=== PATIENT | female | born 1945 | race Caucasian/White ===

== ENCOUNTER → 2018-02-04 07:48 | Outpatient (CLI) | payer MEDICARE, OTHER, SELFPAY ==
--- NOTE | 2018-02-04 07:50 | CT_ITS ---
STUDY: CT RIGHT SHOULDER REASON FOR EXAM: Female, 72 years old. Osteoarthritis. RADIATION DOSAGE (If Supplied By Facility): CTDIvol = ( 26.22 ) mGy, DLP = ( 508.65 ) mGycm TECHNIQUE: The patient was scanned in a multi detector CT scanner. High resolution transaxial imaging was performed without the administration of intravenous contrast material. Sagittal and coronal images were reconstructed. # of Images: 449 Individualized dose optimization techniques were used for this CT. COMPARISON: None. FINDINGS: The exam is very significantly limited, because of suboptimal positioning and field of view. Much of the proximal humerus is excluded from the field of view, including the greater tuberosity. No definite fractures or dislocations. Mild acromioclavicular osteoarthritis seen. Mild glenohumeral osteoarthritis is suggested. There is only 4 mm of distance between the surface of the humeral head and the anterior surface of the acromion. This suggests possibility of complete rotator cuff tear. Visualized right ribs are unremarkable. Visualized right lung is unremarkable. CT/Extremity Upper without Contra IMPRESSION: Limited by a suboptimal choice of [id number]. No definite acute abnormality. Moderate degenerative changes and cannot exclude complete rotator cuff tear. Electronically Signed: Mayco Orr MD at 16:01 EDT , Service support ,
== END ==
PROVIDERS: Family Provider Internal Medicine; PCP Internal Medicine; Referring Provider Specialist; Visit Provider Specialist
DX: M19.211 Secondary osteoarthritis, right shoulder (principal)
CPT/HCPCS: 73200

== ENCOUNTER → 2018-03-02 08:03 | Outpatient (CLI) | payer SELFPAY ==
--- NOTE | 2018-03-02 08:00 | CT_ITS ---
STUDY: CT RIGHT SHOULDER REASON FOR EXAM: Female, 72 years old. Right shoulder osteoarthritis. RADIATION DOSAGE (If Supplied By Facility): CTDIvol = ( 26.22 ) mGy, DLP = ( 508.65 ) mGycm TECHNIQUE: The patient was scanned in a multi detector CT scanner. High resolution transaxial imaging was performed without the administration of intravenous contrast material. Sagittal and coronal images were reconstructed. Individualized dose optimization techniques were used for this CT. COMPARISON: Comparison is made with prior study dated February 04, 2018. FINDINGS: Normal glenohumeral articulation. Normal glenoid rim, neck and visualized scapula. Normal humeral head, neck and tuberosities. There is a 4 mm distance between the surface of the humeral head and the anterior surface of the acromion. This is suggestive of chronic rotator cuff disease. Normal coracoid process. Normal visualized lateral clavicle. There is mild osteoarthritis with articular joint space narrowing. There is a Type II morphology (curved), with a neutral orientation. Normal visualized muscles and soft tissue structures. CT/Limited or Localized F/U CT IMPRESSION: Upward migration of the humeral head with narrowing of the space between the humeral head and the acromion. This is suggestive of rotator cuff disease. Electronically Signed: Diaz Apple MD at 9:55 EST Tel [phone], Service support ,
== END ==
PROVIDERS: Family Provider Internal Medicine; PCP Internal Medicine; Referring Provider Specialist; Visit Provider Specialist
DX: M19.011 Primary osteoarthritis, right shoulder (principal)
CPT/HCPCS: 76380

== ENCOUNTER 2018-04-06 06:35 | Inpatient (IN) | payer MEDICARE, OTHER, SELFPAY ==
[2014-11-28 10:17] VITALS: BMI 26.5
[2018-03-22 10:17] VITALS: BP 126/62; PULSE 75; RESP 16; TEMP 36.6; O2SAT 98; BMI 26.3
--- NOTE | 2018-03-22 10:23 | SDCEKG_ITS ---
Test Reason : Blood Pressure : / mmHG Vent. Rate : 075 BPM Atrial Rate : 075 BPM P-R Int : 142 ms QRS Dur : 086 ms QT Int : 400 ms P-R-T Axes : 047 030 042 degrees QTc Int : 446 ms Normal sinus rhythm Normal ECG Confirmed by ROSIE GILL, EDGAR ([id number]), editor publications MIC DIEGO ([id number]) on 03/23/2018 3:25:07 PM Referred By: Cliff Gonzalez Confirmed By:EDGAR VELEZ MD
[2018-03-22 10:50] LABS: Absolute Lymphocyte Count 1.83 X10^3/ul (0.83-4.51); Basophil# 0.01 X10^3/uL; Basophil% 0.2 % (0-1); Eosinophil# 0.16 X10^3/uL; Hematocrit 42.1 % (37-47); Hemoglobin 13.8 g/dl (12.0-15.0); Lymphocyte # 1.83 X10^3/ul (4.0); Lymphocyte % 34.8 % (19-41); Mean Corp Hgb Conc 32.8 g/gl (32-36); Mean Corpuscular Hgb 28.3 pg (27.0-32.0); Mean Corpuscular Volume 86.3 fL (81-99); Mean Platelet Vol. 10.8 fl (6.2-12.0); Monocyte# 0.31 X10^3/uL; Monocyte% 5.9 % (0-10); Neutrophil # 2.95 X10^3/uL (2.7-7.7); Neutrophil % 56.1 % (47-70); Platelet Count 270 K/mm3 (150-450); RBC Distribution Width SD 43.9 fl (35.1-43.9); Red Blood Count 4.88 M/mm3 (4.2-5.4); White Blood Count 5.3 K/mm3 (4.4-11.0)
[2018-03-22 10:51] LABS: POSITIVE COUNT NO; POSITIVE DIFFERENTIAL NO; POSITIVE MORPHOLOGY NO
[2018-03-22 11:12] LABS: Anion Gap 8 (5-15); BUN 23 mg/dL (7-18); BUN/Creat Ratio 25.3 RATIO (10-20); Calcium,Total 8.7 mg/dL (8.5-10.1); Chloride 105 mmol/L (98-107); Creatinine, Serum 0.91 mg/dL (0.55-1.02); EST Glomerular Filtration Rate 65 mL/min (>60); Est Glom Filt Rate - Afr Amer 78 mL/min (>60); Estimated Creatinine Clearance 51.02 ml/min; Glucose 91 mg/dL (74-106); Potassium 3.7 mmol/L (3.5-5.1); Sodium Level 144 mmol/L (136-145); Thyroid Stim Hormone (TSH) 1.31 uIU/mL (0.358-3.74)
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
[2018-04-06] VITALS (10 sets, daily range): BP systolic 108–135; BP diastolic 60–91; PULSE 59–91; RESP 14–18; TEMP 36.2–37.1; O2SAT 94–100; BMI 26.3; BMI 25.7
[2018-04-06] MEDS: Acetaminophen 500 MG Tablet 1000 MG PO ×3 (06:57→22:38)
[2018-04-06] MEDS: Celecoxib 200 MG Capsule 400 MG PO (06:57)
[2018-04-06] MEDS: Scopolamine 1mg/72hr Patch 1 PATCH TD (07:00)
--- NOTE | 2018-04-06 08:29 | OP.PCM_ITS ---
Report of Operation Date of Procedure: 04/06/18 Pre-Operative Diagnosis: Right shoulder CTA Post-Operative Diagnosis: Right shoulder CTA Surgery/Procedure Performed:: Right reverse TSA Description of Surgical Findings:: Stable shoulder developer prover upholstering: Maxi Amos Type of Anesthesia:: General Anesthesiologist: Parish Machado Special Medications: 100 mg clindamycin, 1 g TXA at incision, 1 g TXA closure, 10 mg Decadron, joint cocktail (5 mg Duramorph, 30 mL of 0.5% Ropivicaine, 1000 units of epinephrine, 30 mg of Toradol), vancomycin IV throughout the case Specimen's removed: Bony cuts Estimated Blood Loss (mL): 150 Fluids Replaced: 1600 mL crystalloid Description of Procedure: Components used 1. Rosario glenoid baseplate from [employer] for reverse TSA 2. Rosario 32, +2 mm Glenosphere 3. [place] 32mm, 4mm humeral liner 4. Rosario reverse TSA humeral adapter tray 4mm 5. Rosario humeral stem primary press-fit 11mm size Brief history/Operative indications: 72 yo f with history of r shoulder pain and cuff tear arthropathy. Patient failed conservative measures as mentioned in the H&P. After discussion of risk and benefits of reverse total shoulder replacement including but not limited to blood loss, DVTs, PEs, nerve vessel damage, infection, general risk of anesthesia including loss of life, instability and stiffness patient demonstrating understanding wish to proceed was able to sign informed consent. Medical clearance was obtained. Procedure: On the date of the procedure, patient's r upper extremity was marked in the preoperative area. Patient was taken back to the operating room where they were placed on the table in the supine position. Anesthesia assumed control of the C-spine and airway, then administered anesthetic. All bony prominences were identified well-padded, the head was secured and the patient was placed in the beachchair position at about 35? inclination. Anesthesia remained in control of the C-spine airway throughout the remainder of the procedure. Patient was then appropriately fastened to the table and the r upper extremity was prepped in a sterile fashion. The surgeons then scrubbed. Upon reentering the room, the r upper extremity was draped in a sterile fashion and the incision was marked out. Timeout was called, everyone agreed upon the side, the site, the procedure to be performed, patient identity and antibiotics given. Incision was taken down through skin and subcutaneous tissue, fat down to fascia. The stripe of the deltopectoral interval and cephalic vein were identified and blunt dissection was used to retract the deltoid. The cephalic vein was retracted laterally. Clavipectoral fascia was then incised and a cobra retractor was placed in the wound. The proximal one third of the pectoralis major insertion was released. Pectoralis tendon insertion was used to tenodesed the biceps tendon which was identified in the bicipital groove. Tenodesis was done with #1 Vicryl. Proximally we followed the biceps tendon after transecting it into the rotator interval. The rotator interval was split and the arm was externally rotated. The split was 1 cm medial to the bicipital groove. Subscapularis tendon was released. We released down the anterior portion of the humeral head and a howell elevator was used to release the inferior portion of the humeral head. The arm was externally rotated and the shoulder was dislocated. The humeral head cutting guide was used to make humeral cut. This was done at 20? retroversion. Once his humeral head cut was made humerus was retracted out of the way and the glenoid was exposed. After exposing the glenoid, the labrum and the remaining proximal biceps were debrided. At this time we are able to view the entire outer edge of the glenoid. A central pin was placed we sequentially reamed over this central pin to 32mm. Once this was completed the central pedicle was drilled. The glenoid baseplate was impacted into place. Wound was closely irrigated out with normal saline we then drilled sequentially for 2 screws. Screws were placed superiorly and inferiorly and tightened down the screws. Once the screws were appropriately tightened into place the glenoid baseplate was compressed against the exposed subchondral bone. A 32mm glenosphere was impacted into place engaging the Nogueira taper. The central screw was then tightened into place. Attention was then turned towards the humerus. The humerus was again externally rotated exposing the proximal portion of the humerus. Central canal finder was then used to open up the canal. We reamed to a 11mm reamer. We then broached to a 1mm stem. We trialed the 4mm liner, with the 4mm humeral baseplate. We obtained an adequate reduction at this time with a nice stable shoulder. Good internal rotation to the gluteus, forward elevation to 140?, external rotation to 20?. Final components were then assembled on the back table, trials were removed and the wound was copiously irrigated with normal saline after dislocating the shoulder. Once the final components were assembled they were impacted into place. Shoulder was then reduced and found to be stable with good range of motion. Subscapularis tendon repaired using #2 FiberWire. The wound was then copiously irrigated out with a 1 L normal saline lavage. The deltopectoral fascia was then closed using #1 Vicryl skin was closed using 2-0 Vicryl interrupted sutures and final skin closure was done with 3-0 Monocryl. Steri-Strips are placed for final skin closure. Sterile dressing was placed patient was then placed in a sling and awakened by anesthesia. Patient was then transferred to the PACU for recovery. Postoperative plan: Patient will be admitted to the hospital overnight. They will get physical therapy starting in 2 weeks with normal postoperative regimen. Patient will be placed on aspirin 325 mg daily for DVT prophylaxis. The first postoperative appointment will be in 2 weeks for wound check and initiation of phase 1 physical therapy. During the course of the procedure the physician bacteriology research assistant played a vital role. His intimate knowledge of my steps in the procedure aided in safe and expedient completion of the procedure. The PA played a vital rolls in positioning particularly in obtaining the appropriate beach chair position and securing the patient's body and head to the table. The PA was also vital in the retraction of soft tissues during the exposure and especially the glenoid work as this is a vital part of the procedure to prevent neurovascular damage. the PA was also vital and protecting soft tissues during times of bony cuts and reaming. He also played a vital role in closure with my direct supervision. The PA was also important during reduction and dislocation of the joint and trials intraoperatively. Grafts/Implants Used: [place] reunion - Complications none - Admit VTE Documentation VTE Present on Admission: No VTE Mechan Device Prophylaxis: SCD's VTE Pharm Prophylaxis ordered?: Yes
[2018-04-06] MEDS: Vancomycin IV 1,000 MG/200 ML BAG 200 MG IV (08:44)
--- NOTE | 2018-04-06 10:12 | RAD_ITS ---
STUDY: X-RAY - RIGHT SHOULDER REASON FOR EXAM: Female, 72 years old. Total shoulder replacement. TECHNIQUE: AP view(s) of the shoulder. COMPARISON: None. FINDINGS: The patient is status post right reverse shoulder replacement. There is good alignment. Postoperative soft tissue changes. RAD/Shoulder One View IMPRESSION: Status post right shoulder replacement. There is good alignment. Postoperative soft tissue changes. Electronically Signed: Diaz Apple MD at 13:42 EST Tel [phone], Service support ,
[2018-04-06] MEDS: Aspirin 325 MG Tablet PO (11:51)
[2018-04-06] MEDS: Famotidine 20 MG Tablet PO (11:51)
[2018-04-06] MEDS: Meloxicam 7.5 MG Tablet PO ×2 (15:52→22:06)
[2018-04-06] MEDS: Pramipexole Di-HCl 0.5 MG Tablet PO (19:37)
[2018-04-06] MEDS: Lactated Ringers 1,000 ML 125 ML IV (20:15)
[2018-04-06] MEDS: oxyCODONE 5 MG Tablet PO (20:28)
[2018-04-06] MEDS: Morphine 2 MG/ML Syringe IV ×2 (21:59→23:21)
[2018-04-06] MEDS: 0.9% NaCl Peripheral Flush Adult/Peds IV ×2 (22:00→23:20)
[2018-04-07] MEDS: 0.9% NaCl Peripheral Flush Adult/Peds IV ×3 (00:17→05:10)
[2018-04-07] MEDS: Ketorolac 15 MG/ML Vial IV (00:17)
[2018-04-07] MEDS: Ondansetron 4 MG/2 ML Vial IV (01:47)
[2018-04-07] MEDS: oxyCODONE 5 MG Tablet PO ×2 (01:51→06:47)
[2018-04-07 02:05] VITALS: BP 92/51; PULSE 65; RESP 16; TEMP 37.1; O2SAT 96
[2018-04-07 05:05] VITALS: BP 109/64; PULSE 71
[2018-04-07] MEDS: Levothyroxine 100 MCG Tablet PO (05:20)
[2018-04-07] MEDS: Acetaminophen 500 MG Tablet 1000 MG PO (05:21)
--- NOTE | 2018-04-07 07:00 | PCM.PN.ORT ---
Subjective: The patient was sitting in bed upon examination. Patient denies any chest pain, shortness of breath, dizziness, lightheadedness, nausea or vomiting, or calf pain. Pain is controlled on medications. No adverse overnight events. Overall patient is doing well. Pain is controlled. Plan will be for discharge home today.. Objective: Dressing is C/D/I Ultra-sling fitting appropriately Sensation intact to axillary, radial, median, and ulnar distribution Motor intact to AIN, PIN, and ulnar nerve Vital signs stable, afebrile - Physical Exam General: Alert, Oriented x3, Cooperative, No apparent distress Vital Signs Temp Pulse Resp BP Pulse Ox 98.8 F 71 16 109/64 96 04/07/18 02:05 04/07/18 05:05 04/07/18 02:05 04/07/18 05:05 04/07/18 02:05 Oxygen Flow Rate (L/min) 3 Oxygen Delivery Method Room Air Weight: 71.4 kg Body Mass Index (BMI) 25.7 Intake and Output for Last 24 Hours 04/05/18 04/06/18 04/07/18 23:59 23:59 23:59 Intake Total 3609 / 3609 727 / 727 Output Total 1500 / 1500 800 / 800 Balance 2109 / 2109 -73 / -73 Medical Necessity - Tobacco Use Smoking Status: Never smoker Tobacco Use: Non-smoker Assessment/Plan 1. S/P right reverse total shoulder arthroplasty POD #1 2. Continue Pain Medications: Tylenol and OxyIR 3. DVT Prophylaxis: Aspirin 325 mg daily for 2 weeks postoperatively 4. PT/OT: No formal physical therapy until 2 weeks postoperatively. Okay for physical therapy in hospital to work on elbow, wrist, hand range of motion and pendulum exercises. Continue with UltraSling otherwise at all times. 5. Encouraged Incentive Spirometry 6. Disposition: Plan is for discharge home today if pain is controlled. Prescriptions will be E scribed to [facility]. Patient will follow-up per postop instructions..
--- NOTE | 2018-04-07 07:08 | DCINST_ITS ---
Discharge Diet: No Restrictions Discharge Activity: May Not Drive May shower in (days): 1 - Turned dressing away from water Ice area for (Minutes): 20 - Ice area for 20 minutes each hour while awake Weight Bearing Status: No weight bearing - Right upper extremity Call your doctor if your incision/area has: Continuous Slow Oozing, Sudden Increased Bleeding, Increased Pain/ Swelling, Increased Redness, Foul Smelling Discharge Call your doctor if you observe: Fever of 101 or Higher, Coldness, Increased Pain, Numbness or Tingling, Change in Color Remove Dressing in (days):: 4 - Okay to remove dressing on April 11, 2018 Additional Instructions: Follow [facility] postop instructions Do not take tramadol while taking the oxycodone for postoperative pain Allergies/Adverse Reactions: Allergies cephalexin Adverse Reaction (Verified 03/22/18 10:08) Upset Stomach Medications to take at Discharge Pramipexole Di-HCl [Mirapex] 0.5 mg PO QHS 09/02/13 Ergocalciferol [Vitamin D] 50,000 unit PO Q7D 03/22/18 Levothyroxine Sodium 100 mcg PO DAILY 03/22/18 Acetaminophen [Tylenol] 1,000 mg PO Q8 #90 tablet 04/07/18 Aspirin 325 mg PO DAILY@0800 #14 tablet 04/07/18 Famotidine [Pepcid] 20 mg PO DAILY #14 tablet 04/07/18 Meloxicam [Mobic] 7.5 mg PO BID #60 tablet 04/07/18 Oxycodone [Oxyir] 5 - 10 mg PO Q4H PRN PRN 5 Days #60 tablet 04/07/18 The following prescriptions were given: Oxycodone [Oxyir] 5 - 10 mg PO Q4H PRN PRN 5 Days #60 tablet PRN Reason: Pain Acetaminophen [Tylenol] 1,000 mg PO Q8 #90 tablet Aspirin 325 mg PO DAILY@0800 #14 tablet Famotidine [Pepcid] 20 mg PO DAILY #14 tablet Meloxicam [Mobic] 7.5 mg PO BID #60 tablet Primary Care Physician: Maggi Barrow [Primary Care Provider] - Test Results: Test results from this visit will be discussed in further detail at your follow- up appointment, if applicable. Please Follow Up With: Maxi Amos PA-C When: 04/21/18 @ 10:00 am Please Follow Up With: Kareen Krause Physical therapy When: 04/21/18 @ 11:00 am
[2018-04-07] MEDS: Meloxicam 7.5 MG Tablet PO (08:57)
[2018-04-07] MEDS: Famotidine 20 MG Tablet PO (08:57)
[2018-04-07] MEDS: Aspirin 325 MG Tablet PO (08:57)
--- OUTSIDE RECORDS SUMMARY | 2018-07-08 11:22 | XMS RPT_ITS ---
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 OUT OF RANGE REFERENCE UNITS LAB L501.9520 0.358-3.74 uIU/mL Normal TSH 1.31 Performed By: #### L500.2500, L501.9520 #### [facility] [address] [place], [address] Observed: 03/22/2018 Status: F Source: NOKOMIS MRSA/SAID SCREEN 10:40 AM [facility] REPOSITORY MRSA/SAID SCRN S. AUREUS S. aureus Negative MRSA MRSA Negative Performed By: #### M100.651 #### [facility] [address] [facility] [place], [address] LIMITED OR LOCALIZED Observed: 03/02/2018 Status: F Source: NOKOMIS F/U CT 10:26 AM [facility] REPOSITORY [facility] Imaging Services [address] [place] [address] Limited or Localized F/U CT MR#: [id number] Acct: [id number] Name: VINITA SENA Rep #: [id number] : 1945 F 72 From: Diaz Apple MD PCP: Kitty Barrow Status: REG CLI Study: Limited or Localized F/U CT Date of Exam: 03/02/18 Exam# [id number] Ordering Dr: Cliff Gonzalez MD STUDY: CT RIGHT SHOULDER REASON FOR EXAM: Female, 72 years old. Right shoulder osteoarthritis. RADIATION DOSAGE (If Supplied By Facility): CTDIvol = ( 26.22 ) mGy, DLP = ( 508.65 ) mGycm TECHNIQUE: The patient was scanned in a multi detector CT scanner. High resolution transaxial imaging was performed without the administration of intravenous contrast material. Sagittal and coronal images were reconstructed. Individualized dose optimization techniques were used for this CT. COMPARISON: Comparison is made with prior study dated February 04, 2018. FINDINGS: Normal glenohumeral articulation. Normal glenoid rim, neck and visualized scapula. Normal humeral head, neck and tuberosities. There is a 4 mm distance between the surface of the humeral head and the anterior surface of the acromion. This is suggestive of chronic rotator cuff disease. Normal coracoid process. Normal visualized lateral clavicle. There is mild osteoarthritis with articular joint space narrowing. There is a Type II morphology (curved), with a neutral orientation. Normal visualized muscles and soft tissue structures. CT/Limited or Localized F/U CT IMPRESSION: Upward migration of the humeral head with narrowing of the space between the humeral head and the acromion. This is suggestive of rotator cuff disease. Electronically Signed: Diaz Apple MD at 9:55 EST Tel [phone], Service support , CC: Kitty Barrow; Cliff Gonzalez MD Adjunct Instructor In Economics: Signed EXTREMITY UPPER Observed: 02/04/2018 Status: F Source: NOKOMIS WITHOUT CONTRA 7:50 AM [facility] REPOSITORY [facility] Imaging Services [address] [place] [address] Extremity Upper without Contra MR#: [id number] Acct: [id number] Name: VINITA SENA Rep #: [id number] : 1945 F 72 From: Mayco Orr MD PCP: Kitty Barrow Status: REG CLI Study: Extremity Upper without Contra Date of Exam: 02/04/18 Exam# [id number] Ordering Dr: Cliff Gonzalez MD STUDY: CT RIGHT SHOULDER REASON FOR EXAM: Female, 72 years old. Osteoarthritis. RADIATION DOSAGE (If Supplied By Facility): CTDIvol = ( 26.22 ) mGy, DLP = ( 508.65 ) mGycm TECHNIQUE: The patient was scanned in a multi detector CT scanner. High resolution transaxial imaging was performed without the administration of intravenous contrast material. Sagittal and coronal images were reconstructed. # of Images: 449 Individualized dose optimization techniques were used for this CT. COMPARISON: None. FINDINGS: The exam is very significantly limited, because of suboptimal positioning and field of view. Much of the proximal humerus is excluded from the field of view, including the greater tuberosity. No definite fractures or dislocations. Mild acromioclavicular osteoarthritis seen. Mild glenohumeral osteoarthritis is suggested. There is only 4 mm of distance between the surface of the humeral head and the anterior surface of the acromion. This suggests possibility of complete rotator cuff tear. Visualized right ribs are unremarkable. Visualized right lung is unremarkable. CT/Extremity Upper without Contra IMPRESSION: Limited by a suboptimal choice of [id number]-maok. No definite acute abnormality. Moderate degenerative changes and cannot exclude complete rotator cuff tear. Electronically Signed: Mayco Orr MD at 16:01 EDT , Service support , CC: Kitty Barrow; Cliff Gonzalez MD Adjunct Instructor In Economics: Signed CBC Collected: 11/09/2017 Status: F Source: TYLER ROBERTS 7:20 AM [facility] REPOSITORY TYPE CODE TESTS RESULT OUT OF RANGE REFERENCE UNITS LAB CBC(LOINC) CBC Result Comment: CBC-COMPLETE BLOOD COUNT LAB WBC(LOINC) 4.5 - 10.8 x 10EE3/UL WBC 6.1 LAB RBC(LOINC) 4.10 - x 10EE6/UL 5.30 RBC 4.94 LAB HEMOGLOBIN(LOINC) 12.0 - g/dl 16.0 HEMOGLOBIN 13.8 LAB HEMATOCRIT(LOINC) 34.0 - % 46.0 HEMATOCRIT 41.1 LAB MCV(LOINC) 80 - 99 fl MCV 83 LAB MCH(LOINC) 27 - 33 pg MCH 28 LAB MCHC(LOINC) 32 - 36 X10 3 MCHC 34 LAB RDW/CV(LOINC) 12.0 - % 15.6 RDW/CV 14.1 LAB PLATELET(LOINC) 150 - 450 x10EE3/UL PLATELET 282 LAB MPV(LOINC) 6.6 - 10.5 fl MPV 9.1 Result Comment: AUTOMATED DIFFERENTIAL LAB NEUT %(LOINC) 46.0 - 76.0 % NEUT % 60.3 LAB LYMPH %(LOINC) 20.0 - 45.0 % LYMPH % 27.4 LAB MONOS %(LOINC) 0.0 - 10.0 % MONOS % 7.5 LAB EO %(LOINC) 0.0 - 7.0 % EO % 4.2 LAB BASO %(LOINC) 0.0 - 2.0 % BASO % 0.6 LAB Lymph #(LOINC) 0.80 - 2.80 x10EE3/U L Lymph # 1.70 LAB Neut #(LOINC) 1.50 - 7.10 x10EE3/U L Neut # 3.70 LAB Greer #(LOINC) 0.20 - 1.00 x10EE3/U L Greer # 0.50 LAB EO #(LOINC) 0.00 - 0.50 x10EE3/U L EO # 0.30 LAB Baso #(LOINC) 0.00 - 0.10 x10EE3/U L Baso # 0.00 LAB MANUAL DIFF(LOINC) MANUAL DIFF N/A LAB MORPHOLOGY(LOINC ) MORPHOLOGY N/A Result Comment: {CD] Performed By: #### [id number] #### [address] [address] VITAMIN D, 25 Collected: 11/09/2017 Status: F Source: [facility] 7:20 AM [facility] REPOSITORY TYPE CODE TESTS RESULT OUT OF RANGE REFERENCE UNITS LAB VitD(LOINC) 30.00 - 100 ng/mL VitD 68.99 Result Comment: 25-OHD3 indicates both endogenous production and supplementation. 25-OHD2 is an indicator of exogenous sources, such as diet or supplementation. Therapy is based on measurement of Total 25-OHD, with levels <20 ng/mL indicative of Vitamin D deficiency, while levels between 20 ng/mL and 30 ng/mL suggest insufficiency. Optimal levels are >=30ng/mL. Vitamin D, 25-OH D3 Not Established Vitamin D, 25-OH D2 Not Established Performed By: #### [id number] #### [address],[place] [address] LIPID PROFILE Collected: 11/09/2017 Status: F Source: [facility] 7:20 AM [facility] REPOSITORY TYPE CODE TESTS RESULT OUT OF REFERENCE UNITS RANGE LAB LIPID PROFILE(LOIN C) LIPID PROFILE Result Comment: LIPID PROFILE LAB TRIGLYCERIDE(LOINC) 0 - 150 mg/dl TRIGLYCERIDE 65 LAB CHOLESTEROL(LOINC) 0 - 200 mg/dl CHOLESTEROL 185 LAB HDL(LOINC) 40 - 60 mg/dl HDL High 74 LAB CHOL/HDL(LOINC) 0.0 - 5.0 CHOL/HDL 2.5 LAB LDL(LOINC) 0 - 129 mg/dl LDL 98 Performed By: #### [id number] #### [place] [id number] CMP WITH EGFR Collected: 11/09/2017 Status: F Source: [facility] 7:20 AM [facility] REPOSITORY TYPE CODE TESTS RESULT OUT OF RANGE REFERENCE UNITS LAB CMP with eGFR(LOINC) CMP with eGFR Result Comment: COMPREHENSIVE METABOLIC PANEL LAB SODIUM(LOINC) 136 - 145 mmol/l SODIUM 140 LAB POTASSIUM(LOINC) 3.5 - 5.1 mmol/L POTASSIUM 3.9 LAB CHLORIDE(LOINC) 98 - 107 mmol/L CHLORIDE 105 LAB CO2(LOINC) 21.0 - mmol/L 31.0 CO2 High 31.1 LAB GLUCOSE(LOINC) 74 - 106 mg/dl GLUCOSE 93 LAB BUN(LOINC) 6 - 20 mg/dl BUN High 21 LAB CREATININE(LOINC) 0.6 - 1.2 mg/dl CREATININE 1.0 LAB AST/SGOT(LOINC) 13 - 39 U/L AST/SGOT 16 LAB ALK PHOS(LOINC) 38 - 126 U/L ALK PHOS 70 LAB CALCIUM(LOINC) 8.6 - mg/dl 10.2 CALCIUM 9.0 LAB TOTAL 6.4 - 8.3 g/dl PROTEIN(LOINC) TOTAL PROTEIN 6.6 LAB ALBUMIN(LOINC) 3.4 - 4.8 g/dL ALBUMIN 4.1 LAB GLOBULIN(LOINC) 1.5 - 3.8 G/DL GLOBULIN 2.5 LAB A/G RATIO(LOINC) 0.9 - 1.6 A/G RATIO 1.6 LAB TOTAL BILI(LOINC) 0.0 - 1.5 mg/dl TOTAL BILI 0.5 LAB B/C RATIO(LOINC) 0 - 30 ratio B/C RATIO 21 LAB ALT/SGPT(LOINC) 8 - 35 U/L ALT/SGPT 14 LAB ANION GAP(LOINC) 10 - 20 mmol/L ANION Low GAP 8 LAB AGE(LOINC) years AGE 72 LAB eGFR(LOINC) 60 - 999 ML/MINUTE eGFR Low 55 LAB eGFR(AA)(LOINC) 60 - 999 ML/MINUTE eGFR(AA) >60 Result Comment: ACCORDING TO THE NATIONAL KIDNEY DISEASE EDUCATION PROGRAM(NKDE), A NORMAL eGFR IS A VALUE GREATER THAN OR EQUAL TO 60 ML/MIN/1.73 SQ METERS. CHRONIC KIDNEY DISEASE: <60mL/MIN/1.73 SQ METERS KIDNEY FAILURE: <15mL/MIN/1.73 SQ METERS THIS TEST SHOULD ONLY BE USED FOR PATIENTS 18 YEARS OF AGE AND OLDER. Performed By: #### [id number] #### [place] [address] TSH Collected: 11/09/2017 Status: F Source: [facility] 7:20 AM [facility] REPOSITORY TYPE CODE TESTS RESULT OUT OF RANGE REFERENCE UNITS LAB TSH(LOINC) 0.34 - 5.60 uIU/ml TSH 0.91 Performed By: #### [id number] #### [place] [address] TSH Collected: 09/17/2017 Status: F Source: [facility] 3:50 PM [facility] REPOSITORY TYPE CODE TESTS RESULT OUT OF RANGE REFERENCE UNITS LAB TSH(LOINC) 0.34 - 5.60 uIU/ml TSH 2.11 Performed By: #### [id number] #### [place] [address] T4-FREE (FREE Collected: 09/17/2017 Status: F Source: [facility] THYROXINE) 3:50 PM [facility] REPOSITORY TYPE CODE TESTS RESULT OUT OF RANGE REFERENCE UNITS LAB T4 0.61 - 1.12 ng/dl FREE(LOINC) High T4 FREE 1.16 Result Comment: *SPECIMENS FROM PATIENTS WHO ARE UNDERGOING BIOTIN THERAPY AND/OR INGESTING BIOTIN SUPPLEMENTS MAY HAVE FALSE HIGH RESULTS. Performed By: #### [id number] #### [facility],[address] [address] CAION Collected: 08/11/2017 Status: F Source: [facility] 5:50 AM [facility] REPOSITORY TYPE CODE TESTS RESULT OUT OF REFERENCE UNITS RANGE LAB CAION(LOINC 1.12-1.32 mmol/L ) Calcium 1.13 Ionized Performed By: #### CAION #### [facility] [address] [place] [address] CAION Collected: 08/10/2017 Status: F Source: [facility] 8:02 PM [facility] REPOSITORY TYPE CODE TESTS RESULT OUT OF REFERENCE UNITS RANGE LAB CAION(LOINC 1.12-1.32 mmol/L ) Low Calcium 1.06 Ionized Performed By: #### CAION #### [facility] [address] [place] [address] FINAL SURGICAL Observed: 08/10/2017 Status: F Source: [facility] PATHOLOGY REPORT 10:39 AM [facility] REPOSITORY . Pathology Reports Accession: Collected Date/Time: Received Date/Time: Pathologist: [id number] 08/10/2017 10:39 EDT 08/10/2017 12:23 EDT MD MIGUELINA PEDRAZA Final Surgical Pathology Report DIAGNOSIS: A) LEFT THYROID, LOBECTOMY: - MULTINODULAR FOLLICULAR HYPERPLASIA. B) RIGHT THYROID, LOBECTOMY: - MULTINODULAR FOLLICULAR HYPERPLASIA. CLINICAL INFORMATION: Procedure: TOTAL THYROIDECTOMY Preoperative diagnosis: MULTINODULAR CYSTIC GOITER NOS Postoperative diagnosis: MULTINODULAR CYSTIC GOITER NOS SPECIMEN: A THYROID - LEFT THYROID LOBE B THYROID - RIGHT THYROID LOBE GROSS DESCRIPTION: A) Received in formalin and consists of a 12 gram thyroid lobe measuring 5.5 x 3 x 3 cm. On section there is a pale colbert nodule measuring 1.8 cm. in greatest dimension. The nodule is totally embedded in cassettes #1 thru #3. The remaining thyroid is maroon with a vague nodular appearance. Milling Machine Set Up Operator sections from the remaining thyroid in cassettes #4 and #5. B) Received in formalin and consists of a 27 gram nodular thyroid measuring 6 x 4 x 3.2 cm. On section the cut surface has a vaguely nodular appearance. The nodular areas are totally embedded in nine cassettes. dictated by Stefan Pedraza M.D. Dictated by MIGUELINA PEDRAZA MD MICROSCOPIC DESCRIPTION: Slides reviewed. Electronically Signed by Pathology Report verified by [facility] Electronically signed by MIGUELINA PEDRAZA MD Sign out Date: 08/11/2017 14:35 Performing Lab: [facility], [address] [place] [address] Performed By: #### SPFR #### [place] [address] ALLERGIES ALLERGIES DATE TYPE / CODE NAME / CODE REACTION SEVERITY SOURCE 03/22/2018 Drug cephalexin/F Upset Stomach Unknown [facility] Allergy/4160 [id number]( Hospital [address](SNOMED NORM) Repository CT) Drug CEPHALEXIN/0 Moderate [facility] Allergy/4160 [id number](RXNO (Severity [facility] [address](SNOMED RM) Modifier) Repository CT) (Qualifier Value) ENCOUNTERS ENCOUNTERS ADMIT/DISCHARGE ACCOUNT NUMBER ADMITTING ENCOUNTER LOCATION SOURCE CLASS 04/06/2018/04/07/20 [id number] Carlos, Inpatient [address] ding:[id number] Repository : DI086Pii: 1 03/22/2018 [id number] Ambulatory BMSBuilding: [facility] Repository 03/02/2018 [id number] Ambulatory [facility] ding:CT Repository 02/04/2018 [id number] Ambulatory [facility] ding:CT Repository 12/23/2017/12/24/19 [id number] NITA, Ambulatory [facility] [address] [place] [address] Repository 11/09/2017/11/10/19 [id number] NITA, Ambulatory [facility] Repository 09/17/2017/09/18/19 [id number] SON ABARCA Ambulatory [facility] Repository 08/10/2017/08/12/19 [id number] RUBINA GILL, Ambulatory ABuilding:ME Rj Olmedo 6ERoom: Health 6704Bed: A Foundation Repository PAYERS PAYERS ENCOUNTER GUARANTOR PAYER SUBSCRIBER SOURCE 04/06/2018 RAJESH Magdaleno Kareen [id number] TR Insurance:MEDICARE ANGLEDOB: [address], PART A BPolicy Number: [email or web address] [address]Btm: [id number] Repository Date:2018-01-28 () 04/06/2018 Secondary RAJESH A Kareen Insurance:WPS ANGLEDOB: Community FOR LIFEPolicy Number: [id number] Hospital [id number] Repository Date:[id number], [place] [address]QI: 04/06/2018 Tertiary NOT GIVENUNK [place] Insurance:SELF PAY [facility] Number: Effective Repository Date:2018-01-28 03/22/2018 RAJESH A Primary VINITA Mathur [id number] TR Insurance:MEDICARE ANGLEDOB: [address], PART A BPolicy Number: [email or web address] [address]Zpd: [id number] Repository Date:2018-01-28 () 03/22/2018 Secondary RAJESH A Kareen Insurance:WPS ANGLEDOB: Community FOR LIFEPolicy Number: [id number] Hospital [id number] Repository Date:[id number] [address], [place] [address]NM: 03/22/2018 Tertiary NOT GIVENUNK Kareen Insurance:SELF PAY [facility] Number: Effective Repository Date:2018-03-22 03/02/2018 RAJESH A Primary Insurance:SELF NOT GIVENUNK Kareen [id number] TR PAY [address], Number: Effective [facility] [address]Irw: Date:2018-02-24 Repository () 02/04/2018 RAJESH A Primary VINITA Mathur [id number] TR Insurance:MEDICARE ANGLEDOB: [address], PART A olicy Number: [id number] [facility] [[email or web address] [address]Oma: [id number] Repository Date:2018-01-28 () 02/04/2018 Secondary RAJESH A Kareen Insurance:WPS ANGLEDOB: [facility] FOR LIFEPolicy Number: [id number] Hospital [id number] Repository Date:[id number] [address]FI: 02/04/2018 Tertiary NOT GIVENUNK Kareen Insurance:SELF [facility]Y [facility]: Effective Repository Date:2018-01-28 12/23/2017 VINITA Magdaleno Primary RAJESH Marce [facility] ANGLEDOB: Insurance: FOR ANGLEDOB: [facility] [id number] Hospital TR Number: [address] Repository [address] [place] [id number] [address]Nwx: Date: Dc [id number] () 11/09/2017 VINITA Magdaleno Primary Insurance:500 VINITA Alvaradoerecolilns ANGLEDOB: MEDICARE ANGLEDOB: [facility] [id number] Hospital TR Number: [address] Repository [address] [place] [id number] [address]Iop: Date:Plan Name:[facility] [id number] () 11/09/2017 Secondary RAJESH A Tyler Alvaradoerene Insurance: FOR ANGLEDOB: [facility] [id number] Hospital Number: [address] Repository [id number] [place], Date:Plan Name:[facility] [id number] 09/17/2017 VINITA Magdaleno Primary Insurance:500 VINITA Alvaradoerene ANGLEDOB: MEDICARE ANGLEDOB: [facility] [id number] Hospital TR Number: [address] Repository [address] [place] [id number] Date:Plan Name: [id number]: () 09/17/2017 Secondary RAJESH A [place] Pome[facility] Insurance: FOR ANGLEDOB: [facility] [id number] Hospital Number: [address] Repository [id number] [address] [place] [address], Date: Dc [id number] 08/10/2017 [facility] ANGLEDOB: Insurance:MEDICARE ANGLEDOB: [facility] PART BPolicy Number: [id number] [facility] [id number] [address], Date:2017-07-[address] [place] [address]Hxr: [id number] [place] [address]Hgv: Name:[facility] (HP) [employer] (HP)Tel: [phone]) Wie [address]Nhlytdsnu, [place] [phone] (WP) [address]DC: 08/10/2017 [facility] Insurance: FOR ANGLEDOB: [facility] LIFEPolicy Number: [id number] Repository [id number] [address] [place] [address] Date:2017-07-02 - [address] [place] [address], [id number] [place] [address]Ymh: Name:[facility] [place] Mark 7890MGELACIO mcdonnell (HP)Tel: [phone]: ([phone]
== END 2018-04-07 09:15 | disposition home or self-care (01) | DRG 483 ==
PROVIDERS: Anesthesiology; Admitting Provider Specialist; Family Provider Internal Medicine; PCP Internal Medicine; Referring Provider Specialist; Visit Provider Specialist
PROC: 0RRJ00Z Replacement of Right Shoulder Joint with Reverse Ball and Socket Synthetic Substitute, Open Approach (ICD-10-PCS; CPT 23472; principal; 2018-04-06 08:00)
DX: M12.811 Other specific arthropathies, not elsewhere classified, right shoulder (principal); M75.101 Unspecified rotator cuff tear or rupture of right shoulder, not specified as traumatic; G25.81 Restless legs syndrome; E89.0 Postprocedural hypothyroidism
CPT/HCPCS: 73020; 80048; 84443; 85025; 87081; 93005; 97165; 97530; C1776; J7120; A4216; J2405

== ENCOUNTER 2019-10-10 11:00 | Day surgery (SDC) | payer MEDICARE, OTHER, SELFPAY ==
[2018-04-06 11:59] VITALS: BMI 25.7
[2019-10-05 10:51] LABS: Hematocrit 43.7 % (37-47); Hemoglobin 13.7 g/dL (12.0-15.0); Mean Corp Hgb Conc 31.4 g/dL (32-36); Mean Corpuscular Hgb 27.8 pg (27.0-32.0); Mean Corpuscular Volume 88.6 fL (81-99); Mean Platelet Vol. 10.3 fl (6.2-12.0); Platelet Count 311 K/mm3 (150-450); RBC Distribution Width CV 13.6 % (11.6-14.6); RBC Distribution Width SD 43.8 fl (35.1-43.9); Red Blood Count 4.93 M/mm3 (4.2-5.4); White Blood Count 6.8 K/mm3 (4.4-11.0)
[2019-10-05 11:03] LABS: Prothrombin Time (Protime)PT. 12.7 SECONDS (11.7-14.9)
[2019-10-05 11:04] LABS: Partial Thromboplast Time 30.1 Seconds (24.1-36.2)
[2019-10-05 11:26] LABS: ALB/GLOB Ratio 1.1 RATIO (0.9-2.4); AST(SGOT) 25 U/L (15-37); Alanine Aminotransfer ALT/SGPT 28 U/L (13-56); Albumin, Serum 3.9 g/dL (3.2-5.0); Alkaline Phosphatase 82 U/L (45-117); Anion Gap 5 (5-15); BUN 21 mg/dL (7-18); BUN/Creat Ratio 23.2 RATIO (10-20); Calcium,Total 8.9 mg/dL (8.5-10.1); Chloride 104 mmol/L (98-107); Creatinine, Serum 0.91 mg/dL (0.55-1.02); EST Glomerular Filtration Rate 65 mL/min (>60); Est Glom Filt Rate - Afr Amer 78 mL/min (>60); Globulin 3.5 g/dL (2.2-4.2); Glucose 85 mg/dL (74-106); Potassium 4.2 mmol/L (3.5-5.1); Protein, Total 7.4 g/dL (6.4-8.2); Sodium Level 140 mmol/L (136-145); Thyroid Stim Hormone (TSH) 4.87 uIU/mL (0.358-3.74)
[2019-10-05 16:29] LABS: Free T3 2.4 pg/mL (2.18-3.98); T4 Free Direct 1.07 ng/dL (0.76-1.46)
[2019-10-10] VITALS (14 sets, daily range): BP systolic 114–145; BP diastolic 67–82; PULSE 71–93; RESP 14–18; TEMP 36.1–36.8; O2SAT 95–100; BMI 27.5
--- NOTE | 2019-10-10 07:15 | HP.PCM_ITS ---
History and Physical Date of Admission: 10/10/19 Surgical History and Physical Veronica Campuzano, a 74 year old female 3 0 0 0 3, presents for Vaginal Hysterectomy and AP Repair on july 25 2019 at 7:30. -- Uterovaginal Prolapse -- Veronica presents from Dr. Barrow for Uterine Prolapse. 73 y.o. G 3 P 3 post- menopausal non-smoker and reports that's she first noticed a pressure, then a bulge out of vagina, approximately 1 month ago. Adds that she occasionally has urine stream interruption. Reports she had no problems with the use of Estrogen cream, but ready to have the surgery and be done with this. Questions answered and consents signed. Prolapsed Uterus which began months ago. Veronica claims it started gradually and has been present for months. It occurs intermittantly. It is located in the vagina. Veronica characterizes it to be non-radiating. Veronica characterizes the quality pressure.; Veronica characterizes the quality Urine Stream Interuption. Severity is moderate and not improving. MEDICATIONS HISTORY: Patient is also takin. Mirapex 0.5 mg tablet, One pill by mouth once a day 2. Synthroid 100 mcg tablet, One pill by mouth once a day 3. tramadol 50 mg tablet, Two pills by mouth twice a day 4. Vitamin D2 1,250 mcg (50,000 unit) capsule, One pill by mouth once a week ALLERGIES: Cephalexin, Severe nausea & vomiting Infections - Chicken pox, Mumps and Measles Illnesses - Hypothyroidism, Arthritis, Restless Legs, Vit D def. Accidents - None Hospitalizations - surgery Review of Systems: GENERAL - Denies fever, or chills SKIN - Denies skin changes EYES - Denies visual changes EARS - Denies difficulty hearing NOSE - Denies nasal congestion or bleeding MOUTH - Denies sore throat or difficulty swallowing NECK - Denies pain or swelling RESPIRATORY - Denies shortness of breath or wheezing CARDIOVASCULAR - Denies palpitations or chest pain GASTROINTESTINAL - Denies nausea, vomiting, diarrhea, constipation GENITOURINARY - Denies dysuria, frequency of urination, incontinence of urine MUSCULOSKELETAL - Denies joint or muscle pain NEUROLOGICAL - Denies localized numbness or weakness PSYCHIATRIC - Denies depression or anxiety ENDOCRINE - Denies heat or cold intolerance, weight loss or gain HEMATO-IMMUNOLOGIC - Denies excesive bleeding with cuts SOCIAL HISTORY: Alcohol Use - None Smoking - Never Diet - no special diet Lifestyle - moderate stress lifestyle and Exercise - active work Seat Belt Use - always Employer - Retired Illicit Drug Use - None Sexual Activity - Spouse-Sig Other Name - Avinash Campuzano Spouse-Sig Other Occupation - Retired Children Name(s) - 3 children Control - postmenopausal FAMILY HISTORY: nc MENSTRUAL HISTORY: LMP Known?- Postmenopausal PAST PREGNANCIES: Total Pregnancies - 3; Full Term Pregnancies - 3; Premature - 0; Abortions, Induced - 0; Abortions, Spontaneous - 0; Ectopics - 0; Multiple Births - 0; Living Children - 3 SURGICAL HISTORY: 1. 1989 Bilateral Foot Surgery 2. 2015 Partial (L) Knee Replacement 3. 2017 (R) Shoulder Surgery 4. T and A, 1951 PHYSICAL EXAM BP- 142/82 Sitting, Right arm, regular cuff Weight- 165.68465 lbs Height- 65.5 inch BMI:27.10 CONSTITUTIONAL - NAD, well nourished, and well developed SKIN - No rash, lesions, or ulcers HEENT - Normocephalic, PERRLA, EOMI NECK - No nodes, no nuchal rigidity and thyroid normal size and texture LYMPH NODES - Palpation of lymph nodes in neck and groins within normal limits LUNGS - CTA x2 without wheezes, crackles or rales CARDIAC - Regular rate and rhythm without rubs, murmurs, or gallops ABDOMEN - Without hepatosplenomegaly, distention, masses, rebound, or guarding; normal bowel sounds; no hernias EXTREMITIES - No edema or calf tenderness NEUROLOGICAL - Cranial nerves II-XII grossly intact PSYCHIATRIC - A and O to time, place, person, mood and affect External Genitial Vagina - non-tender without lesions Urethra/Urethral Meatus - non-tender Bladder - non-tender Vagina - loss of rugae and cystocele protrudes 1-2 cm outside introitus; mild to moderate rectocele with open perineum Cervix - without cervical motion tenderness and has normal size and features without evident lesions and cervix protrudes to within 1-2 cm of introitus with cough Uterus - 5-6 cm in size, mobile and nontender Adnexa - clear without massess or tenderness ASSESSMENT/PLAN: 1. Rectocele and Uterovag Prolapse Incomplete Discussed options including expectant management with or without intravaginal estrogen, pessary use or proceeding with a Vag Hyst and AP Repair. Pt desires proceeding with the surgery. Discussed surgery at length with RBAs. Procedure Criteria Procedure Type: Elective Procedure Essential: No COVID Risk Discussion: The surgeon/proceduralist and patient have discussed in detail the risk of exposure to and/or potential harm posed by the COVID-19 virus with having a surgery/procedure at this time versus the risk of delaying the surgery/procedure. It is not possible to know either the risk of delaying the surgery or procedure or chance of getting an infection with perfect accuracy, but a joint decision was made between the patient and the surgeon/proceduralist to proceed at this time with the scheduled surgery/procedure as indicated on the consent form.
--- NOTE | 2019-10-10 11:15 | EKG12_ITS ---
Test Reason : PRE-OP Blood Pressure : / mmHG Vent. Rate : 077 BPM Atrial Rate : 077 BPM P-R Int : 138 ms QRS Dur : 084 ms QT Int : 398 ms P-R-T Axes : 041 035 035 degrees QTc Int : 450 ms Normal sinus rhythm Normal ECG When compared with ECG of 22-MAR-2018 10:28, No significant change was found Confirmed by PACO MENDOZA ([id number]), order editor SIERRA FU ([id number]) on 10/18/2019 11:23:35 AM Referred By: Valdez Machado Confirmed By:PACO MENDOZA
[2019-10-10] MEDS: Lactated Ringers 1,000 ML 100 ML IV (11:38)
--- NOTE | 2019-10-10 12:54 | OP.PCM_ITS ---
Report of Operation Date of Procedure: 10/10/19 Pre-Operative Diagnosis: Incomplete Utero-vaginal Prolapse, Cystocele, Rectocele Post-Operative Diagnosis: Incomplete Utero-vaginal Prolapse, Cystocele, Rectocele Surgery/Procedure Performed:: Vaginal Hysterecomy and Anterior-Posterior Repair Description of Surgical Findings:: 6 cm size uterus with cervix of protruded to the vaginal introitus. Cystocele which protruded to the vaginal introitus and rectocele which protruded to within 1 cm the vaginal introitus. Open perineum. principal embedded software engineer: Leah Franco Type of Anesthesia:: General - LMA Anesthesiologist: David Hernandez Specimen's removed: Uterus and vaginal mucosa Drains: Webster to straight drain Estimated Blood Loss (mL): 100 cc Fluids Replaced: Crystalloid Description of Procedure: Surgeon: Valdez Machado MD, FACOG Indications: This is a 74-year-old who is been having problems with symptomatic uterovaginal prolapse. Conservative measures have not been helpful. Given this the patient desires that we proceed the above procedure. She has been counseled regarding the risk and indications of this procedure including the possibility of bleeding, infection, and injury to surrounding structures such as bowel bladder. All questions were answered. Procedure: Patient was taken to the operating room where after induction of general anesthesia she was placed in the dorsal lithotomy position and prepped and draped in the usual sterile fashion. A Webster catheter was placed. Anterior cervix was grasped with a tenaculum and anterior cervix circumscribed with cautery on a setting of 35 W coagulation. Anterior vaginal mucosa was undermined and anterior peritoneum was easily entered. The posterior aspect of the cervix was circumscribed with a knife and posterior peritoneum easily entered. Progressive bites were taken on either side of the uterine cervix and each pedicle ligated with 0 Vicryl suture. Superior pedicles were ligated ?2 with 0 Vicryl suture and sidewall pedicles were examined and oversewn where necessary with rromws-ki-foqqi 0 Vicryl suture to achieve hemostasis. Posterior vaginal cuff was oversewn with running locked 0 Vicryl suture. Hemostasis was noted and peritoneum was closed in a pursestring fashion incorporating superior pedicles into the stitch. Vaginal cuff was then closed front to back with interrupted hshkul-fe-muswk 0 Vicryl suture. Hemostasis was noted. Attention was turned toward the anterior repair portion of the procedure. Anterior vaginal mucosa was undermined and divided and then imbricated toward the midline with interrupted 0 Vicryl sutures. Vaginal mucosa was trimmed and then closed with interrupted 2-0 chromic suture. Vaginal cuff was then closed front to back with interrupted ptqden-fa-vnheo 0 Vicryl suture. Hemostasis was noted. Attention was turned toward the posterior repair portion of the procedure. Remnants of the hymenal ring were grasped with Allises and a V-shaped incision was made in the perineum. Rectovaginal mucosa was then undermined divided and then imbricated toward the midline with interrupted 0 Vicryl suture. Vaginal mucosa was trimmed and then closed with running locked 2-0 chromic suture. Remnants of the bulbocavernosus muscles were identified and brought toward the midline with a single dilqur-xa-hidrr 0 Vicryl suture and perineum was closed in the usual fashion with running and subcuticular, and bijsul-zy-limtj 2-0 chromic suture. Hemostasis was noted. Webster catheter was again opened and clear yellow urine was noted. Vagina was packed with about 90% of a 1 inch iodoform tape. Patient tolerated the procedure well was taken to recovery room in satisfactory condition; sponge instrument and needle counts were all reportedly correct. Estimated blood loss for the case was 100 cc. Cefotan 2 g IV was given prior to beginning the operative procedure. There were no apparent complications of the surgery. Specimen to pathology was uterus and vaginal mucosa. Grafts/Implants Used: None - Complications None - Admit VTE Documentation VTE Present on Admission: Yes VTE Mechan Device Prophylaxis: SCD's VTE Pharm Prophylaxis ordered?: Yes
--- NOTE | 2019-10-10 12:58 | PCM.DC.VHY ---
Discharge Diet: No Restrictions Discharge Activity: Return to Normal Activity, May Not Drive - while taking narcotic pain medications., May Shower May resume sexual activity in: 6-8 weeks Call your doctor if your incision/area has: Continuous Slow Oozing, Sudden Increased Bleeding, Increased Pain/ Swelling, Increased Redness, Foul Smelling Discharge Call your doctor if you observe: Fever of 101 or Higher, Inability to urinate, Inability to have a bowel movement, Using more than one pad per hour Allergies/Adverse Reactions: Allergies cephalexin Adverse Reaction (Verified 10/10/19 11:23) Upset Stomach Medications to take at Discharge Pramipexole Di-HCl [Mirapex] 0.5 mg PO QHS 09/02/13 Ergocalciferol [Vitamin D] 50,000 unit PO Q7D 03/22/18 Levothyroxine Sodium 100 mcg PO DAILY 03/22/18 Acetaminophen [Tylenol] 1,000 mg PO Q8 #90 tablet 04/07/18 Viviscal 1 tab PO BID 10/03/19 traMADol [Ultram (G)] 100 mg PO BID 10/03/19 Docusate Sodium [Colace] 100 mg PO BID PRN PRN #60 cap 10/10/19 Oxycodone [Oxyir] 5 mg PO Q6H PRN PRN 7 Days #10 tablet 10/10/19 The following prescriptions were given: Docusate Sodium [Colace] 100 mg PO BID PRN PRN #60 cap PRN Reason: Constipation Transmission Status: Pending to [facility] Oxycodone [Oxyir] 5 mg PO Q6H PRN PRN 7 Days #10 tablet PRN Reason: Pain Score 6-10/10 Transmission Status: Sent to [facility] Primary Care Physician: Maggi Barrow MD [Primary Care Provider] - Test Results: Test results from this visit will be discussed in further detail at your follow-up appointment, if applicable. Please Follow Up With: Valdez Machado MD When: 2-3 weeks
--- NOTE | 2019-10-10 13:00 | HYST_PTH ---
PATIENT: VINITA SENA [place] [facility] [place][id number] AGE/SX: 74/F ROOM: RE10/10/[address]: Dr. Valdez Machado MD : [id number] BED: DIS: 10/11/2019 SPEC #: [id number] RECD: 10/11/19 07:37 STATUS: RUTHANN PAREDESNadeem #: [id number] BON: 10/10/19 13:[address]: Valdez Machado DEPT: SURGICAL PATHOLOGY RECD BY: Yoko Griffith ENTERED: 10/11/19 09:23 SP TYPE: HYSTERECT OTHR DR: Dr. Maggi Barrow MD Tissues: Uterus, NOS Procedures: Surgery Specimen Level II Surgery Specimen Level V HEADER OPERATION: Vaginal hysterectomy, anterior and posterior repair PRE-OP DIAGNOSIS: Incomplete uterovaginal prolapse, cystocele TISSUE SUBMITTED: Uterus, cervix, vaginal mucosa MICROSCOPIC DIAGNOSIS Uterus, hysterectomy: Cervix - nabothian cysts and mild chronic inflammation. Endometrium - weakly proliferative to inactive endometrium with cystic change. Myometrium - adenomyosis. Vaginal mucosa, anterior and posterior repair: Minimal chronic inflammation. No evidence of dysplasia. AM:joseph 10/12/19 MICROSCOPIC DESCRIPTION Slides are reviewed. GROSS DESCRIPTION Received in fixative is one container labeled with the patient's name and designated uterus, cervix, vaginal mucosa. The specimen consists of a hysterectomy specimen consisting of uterus with cervix and attached pieces of mucosal tissue. The uterus with cervix weighs 46 gm and measures 8 x 4 x 3 cm. The ectocervical mucosa is unremarkable. The external os is circular in contour. The endocervical canal measures 2.5 cm in length and the endocervical mucosa is unremarkable. The triangular endometrial cavity measures 4 cm in length and 2 cm in width. The endometrium is herrera, glistening without any mass lesion and measures 0.1 cm in thickness. Sections of the uterine wall do not reveal any mass lesion and measures up to 1.5 cm in thickness. Also present in the container are five variable sized detached pieces of mucosal tissue. No mass lesion is identified. Numerous instrumentation sanches are noted. Television Repairer sections are submitted in seven cassettes as follows: 1 - anterior cervix, 2 - posterior cervix, 3 & 4 - anterior uterine wall, 5 & 6 - posterior uterine wall, 7 - mucosal tissue. / SJ:joseph 10/11/19 TC:5 CPT: 94626, 17896
[2019-10-10] MEDS: Lubricating Jelly 60 GM Tube 30 GM TOPICAL (13:22)
[2019-10-10] MEDS: Dextrose 5%-Lactated Ringers 1,000 ML 150 ML IV (17:22)
[2019-10-10] MEDS: Ketorolac 15 MG/ML Vial IV ×2 (18:46→23:59)
[2019-10-10] MEDS: 0.9% Saline Lock 10 ML Syringe IV (18:48)
[2019-10-10] MEDS: Enoxaparin 30 MG/0.3 ML Syringe SC (20:58)
[2019-10-10] MEDS: Pramipexole Di-HCl 0.5 MG Tablet PO (21:00)
[2019-10-10] MEDS: Acetaminophen 500 MG Tablet 1000 MG PO (21:00)
[2019-10-11 00:06] VITALS: BP 96/57; PULSE 66; RESP 16; TEMP 36.6; O2SAT 97
[2019-10-11] MEDS: Dextrose 5%-Lactated Ringers 1,000 ML 150 ML IV (00:17)
[2019-10-11] MEDS: Levothyroxine 100 MCG Tablet PO (05:27)
[2019-10-11] MEDS: Ketorolac 15 MG/ML Vial IV (05:27)
[2019-10-11] MEDS: 0.9% Saline Lock 10 ML Syringe IV ×2 (05:32→05:39)
[2019-10-11 05:34] VITALS: BP 111/57; PULSE 66; RESP 16; TEMP 36.8; O2SAT 96
[2019-10-11 06:43] LABS: Hematocrit 40.5 % (37-47); Hemoglobin 12.7 g/dL (12.0-15.0); Mean Corp Hgb Conc 31.4 g/dL (32-36); Mean Corpuscular Hgb 28.1 pg (27.0-32.0); Mean Corpuscular Volume 89.6 fL (81-99); Mean Platelet Vol. 10.7 fl (6.2-12.0); Platelet Count 271 K/mm3 (150-450); RBC Distribution Width CV 13.6 % (11.6-14.6); RBC Distribution Width SD 43.8 fl (35.1-43.9); Red Blood Count 4.52 M/mm3 (4.2-5.4); White Blood Count 13.4 K/mm3 (4.4-11.0)
[2019-10-11 06:56] LABS: Creatinine, Serum 0.97 mg/dL (0.55-1.02); EST Glomerular Filtration Rate 60 mL/min (>60); Est Glom Filt Rate - Afr Amer 72 mL/min (>60); Estimated Creatinine Clearance 46.48 ml/min
--- NOTE | 2019-10-11 07:37 | NURSING ---
10/10/19 2100 Patient ambulated two laps around unit with [employer]BER. Tolerated well.
--- NOTE | 2019-10-11 08:37 | PN.OBGYN_ITS ---
Subjective: Patient without complaints. Tolerating diet well. Minimal vaginal bleeding. Denies flatus. Webster catheter was just removed. Objective: Good urine output. Hemoglobin and creatinine okay. Minimal blood on vaginal pack when removed. - Physical Exam Vitals/I&O's: Vital Signs Temp Pulse Resp BP Pulse Ox 98.3 F 66 16 111/57 L 96 10/11/19 05:34 10/11/19 05:34 10/11/19 05:34 10/11/19 05:34 10/11/19 05:34 Oxygen Flow Rate (L/min) 2 Oxygen Delivery Method Room Air Weight: 165 lb 9.074 oz Body Mass Index (BMI) 27.5 Intake and Output for Last 24 Hours 10/09/19 10/10/19 10/11/19 23:59 23:59 23:59 Intake Total 943.33 / 1243.33 2205 / 2205 Output Total 1000 / 1800 1550 / 1550 Balance -56.67 / -556.67 655 / 655 Laboratory Results 10/11/19 05:55: WBC 13.4 H, RBC 4.52, Hgb 12.7, Hct 40.5, MCV 89.6, MCH 28.1, MCHC 31.4 L, RDW Std Deviation 43.8, RDW Coeff of Joel 13.6, Plt Count 271, MPV 10.7 10/11/19 05:55: Creatinine 0.97, Estim Creat Clear Calc 46.48, Est GFR (MDRD) Af Amer 72, Est GFR (MDRD) Non-Af 60 Current Medications Acetaminophen (Tylenol) 1,000 mg PO Q8H PRN PRN PRN Reason: Pain Score 1-3/10 or Fever Last Admin: 10/10/19 21:00 Dose: 1,000 mg Documented by: Docusate Sodium (Colace) 100 mg PO BID PRN PRN PRN Reason: Constipation Hydromorphone HCl (Dilaudid Inj) 0.5 mg IV Q3H PRN PRN PRN Reason: Pain Score 4-10/10 Dextrose/Lactated Ringer's () 1,000 mls @ 150 mls/hr IV .Q6H40M FRANCISCO Last Infusion: 10/11/19 05:39 Dose: 0 mls/hr Documented by: Ketorolac Tromethamine (Toradol (Bkc)) 15 mg IV Q6 [facility] Stop: 10/15/19 18:01 Last Admin: 10/11/19 05:27 Dose: 15 mg Documented by: Levothyroxine Sodium (Synthroid) 100 mcg PO DAILY@0600 [facility] Last Admin: 10/11/19 05:27 Dose: 100 mcg Documented by: Ondansetron HCl (Zofran) 4 mg IV Q4H PRN PRN PRN Reason: NAUSEA Oxycodone HCl (Oxyir) 5 mg PO Q4H PRN PRN PRN Reason: Pain Score 4-10/10 Pramipexole Dihydrochloride (Mirapex) 0.5 mg PO QHS [facility] Last Admin: 10/10/19 21:00 Dose: 0.5 mg Documented by: Simethicone (Mylicon) 80 mg PO PCHS [facility] Last Admin: 10/11/19 08:26 Dose: 80 mg Documented by: Sodium Chloride () 10 - 40 ml IV UD PRN PRN Reason: SALINE FLUSH Last Admin: 10/11/19 05:39 Dose: 10 ml Documented by: Medical Necessity - Tobacco Use Smoking Status: Never smoker Tobacco Use: Non-smoker Assessment/Plan Doing well postoperative day #1 status post vaginal hysterectomy and anterior posterior repair. Will release to home when able to void on own. Routine follow-up instructions given.
[2019-10-11 09:30] VITALS: BP 121/55; PULSE 77; RESP 16; TEMP 37; O2SAT 97
--- NOTE | 2019-10-11 10:25 | PHA.DC.MC ---
Pharmacy Service has performed discharge medication reconciliation and counseling for this patient. 1. DOCUSATE 100MG PO BID PRN CONSTIPATION 2. OXYCODONE 5MG PO Q6H PRN PAIN 6-10/10 X 7 DAYS The patient's discharge medication list was reviewed for discrepancies and discrepancies were resolved. Home Medications Pramipexole Di-HCl [Mirapex] 0.5 mg PO QHS 09/02/13 Ergocalciferol [Vitamin D] 50,000 unit PO Q7D 03/22/18 Levothyroxine Sodium 100 mcg PO DAILY 03/22/18 Acetaminophen [Tylenol] 1,000 mg PO Q8 #90 tablet 04/07/18 Viviscal 1 tab PO BID 10/03/19 traMADol [Ultram (G)] 100 mg PO BID 10/03/19 Docusate Sodium [Colace] 100 mg PO BID PRN PRN #60 cap 10/10/19 Oxycodone [Oxyir] 5 mg PO Q6H PRN PRN 7 Days #10 tab 10/10/19 The patient was counseled on the following discharge medications and changes in medications for homegoing were reviewed. The Reason for Use, instructions for use, and potential side effects were reviewed for all new medications. The patient's questions regarding all of their medications were answered. The patient was able to verbally demonstrate an understanding of their discharge medications.
== END 2019-10-11 10:26 | disposition home or self-care (01) ==
LOC: SDC 11:00 → AC 11:01 → MS3 10-11 07:45
PROVIDERS: Anesthesiology; PCP Internal Medicine; Referring Provider Obstetrics & Gynecology; Visit Provider Obstetrics & Gynecology
PROC: (CPT 58260; principal; 2019-10-10 12:40)
DX: N81.2 Incomplete uterovaginal prolapse (principal); N81.6 Rectocele; G25.81 Restless legs syndrome; E03.9 Hypothyroidism, unspecified; Z79.1 Long term (current) use of non-steroidal anti-inflammatories (NSAID); Z88.1 Allergy status to other antibiotic agents; N88.8 Other specified noninflammatory disorders of cervix uteri; N80.0 Endometriosis of uterus
CPT/HCPCS: 00942; 57260; 58260; 36415; 80053; 82565; 84439; 84443; 84481; 85027; 85610; 85730; 86850; 86900; 86901; 87635; 88302; 88305; 88307; 93005; 99251; G2023; J7120; A4216; G0463; J2405; U0003

== ENCOUNTER → 2020-05-31 14:38 | Outpatient (CLI) | payer MEDICARE, OTHER, SELFPAY ==
[2020-05-03 09:10] VITALS: BMI 28.3
--- NOTE | 2020-05-31 14:40 | CT_ITS ---
STUDY: CT LEFT SHOULDER REASON FOR EXAM: Female, 74 years old. HAVING LEFT SHOULDER REPLACEMENT RADIATION DOSAGE (If Supplied By Facility): CTDIvol = ( 26.22 ) mGy, DLP = ( 570.93 ) mGycm TECHNIQUE: The patient was scanned in a multi detector CT scanner. High resolution transaxial imaging was performed without the administration of intravenous contrast material. Sagittal and coronal images were reconstructed. Individualized dose optimization techniques were used for this CT. COMPARISON: None. FINDINGS: The humeral head is high riding nearly abutting the undersurface of the acromium secondary to a large obvious supraspinatus tendon full-thickness tear. The supra spinatus muscle is mildly to moderately atrophied. The glenohumeral articulation is otherwise preserved. No visualized fracture. Normal glenoid rim, neck and visualized scapula. Normal humeral head, neck and tuberosities. Normal coracoid process. Normal visualized lateral clavicle. There is mild osteoarthritis with articular joint space narrowing. There is a Type II morphology (curved), with a neutral orientation. Normal remaining visualized muscles and soft tissue structures. CT/Extremity Upper without Contra IMPRESSION: 1. High riding humeral head due to large full-thickness tear of the supraspinatus tendon Electronically Signed: Micah Mandel MD at 16:21 EST , Service support ,
== END ==
PROVIDERS: PCP Internal Medicine; Referring Provider Specialist; Visit Provider Specialist
DX: M19.012 Primary osteoarthritis, left shoulder (principal)
CPT/HCPCS: 73200; 73700

== ENCOUNTER 2020-06-04 09:26 | Day surgery (SDC) | payer MEDICARE, OTHER, SELFPAY ==
[2020-05-03 09:10] VITALS: BMI 28.3
[2020-06-04] VITALS (7 sets, daily range): BP systolic 96–150; BP diastolic 51–86; PULSE 69–87; RESP 16–18; TEMP 36.1–36.6; O2SAT 96–100; BMI 29.2
[2020-06-04] MEDS: Lactated Ringers 1,000 ML 100 ML IV ×2 (10:08→13:03)
[2020-06-04] MEDS: Cefazolin 2 GM in 0.9% Normal Saline 100 ML IV (11:05)
--- NOTE | 2020-06-04 11:12 | RAD_ITS ---
PROCEDURE: Spinal cord stimulator insertion. DATE OF EXAMINATION: 06/04/2020 INDICATION: Female, 74 years old. Chronic back pain. FLUOROSCOPY TIME (if supplied): (4 minutes and 32 seconds.) minutes/seconds. 10 intraoperative images were obtained. Intraoperative imaging provided for spinal cord stimulator placement. RAD/Lumbar Spine 2 or 3 Views IMPRESSION: Intraoperative imaging provided for spinal cord stimulator placement. Electronically Signed: Diaz Apple MD at 13:41 EST , Service support ,
[2020-06-04] MEDS: Bupivacaine 0.25% 30 ML Vial (12:00)
[2020-06-04] MEDS: Lidocaine 2% (20 ml mdv) 20 ML Vial OPERA.SITE (12:00)
[2020-06-04] MEDS: Bacitracin 500 UNITS/GM PACKET (12:26)
--- NOTE | 2020-06-04 16:05 | OP.PCM_ITS ---
Report of Operation Date of Procedure: 06/04/20 Description of Surgical Findings:: Pre-Operative Diagnosis: Lumbosacral radiculopathy, lumbosacral degenerative disc disease, lumbosacral spinal stenosis Post-Operative Diagnosis: Lumbosacral radiculopathy, lumbosacral degenerative disc disease, lumbosacral spinal stenosis Surgery/Procedure Performed:: 1. Spinal cord stimulator thoracolumbar leads placement x2 #2 spinal cord stimulator Medtronic intellus generator placement #3 spinal cord stimulator generator pocket creation at the right gluteal region #4 spinal cord stimulator simple programming, 5-intraoperative fluoroscopic interpretation Description of Surgical Findings:: PROCEDURES: 1. Spinal cord stimulator thoracolumbar leads placement x2 #2 spinal cord stimulator Medtronic intellus generator placement #3 spinal cord stimulator generator pocket creation at the right gluteal region #4 spinal cord stimulator simple programming 5-intraoperative fluoroscopic interpretation PREOPERATIVE DIAGNOSES: Lumbosacral radiculopathy, lumbosacral degenerative disc disease, lumbosacral spinal stenosis POSTOPERATIVE DIAGNOSES: Lumbosacral radiculopathy, lumbosacral degenerative disc disease, lumbosacral spinal stenosis ANESTHESIA: MAC COMPLICATIONS: None BLOOD LOSS: Minimal Implanted device: Spinal cord stimulator lead [id number] lot number [id number], lead #2 [id number] lot number [id number] Medtronic spinal cord stimulator generator intellus serial number [id number] PROCEDURE IN DETAIL: History and physical today was reviewed. Risks and benefits of procedure explained. The patient understood, agreed to procedure, informed consent was obtained. IV inserted per routine protocol. The patient was taken to the operating room, placed in the prone position with a pillow positioned underneath the abdomen. A 2 g of Ancef IV piggyback was infused per anesthesia. The lower back and right gluteal area was prepped and draped in a sterile fashion using iodine x3 Ioban was placed. The C-arm was brought in position for AP view at the L2-3 vertebral bodies under direct visualization fluoroscopy on a true AP view the L2-3 interlaminar space was identified skin and subcutaneous tissue and size approximately 10 cc of a mix of 2% lidocaine and 0.25% Marcaine using a 25-gauge regular needle followed by a 25-gauge 3-1/2 inch spinal needle towards the interlaminar space at L2-3, the skin and subcutaneous tissue were then anesthetized and using an 11-gauge blade was then taken down to the skin and subcutaneous tissue using a 14-gauge 3-1/2 inch Touhy needle provided by the [employer] kit the needle was passed through the skin towards the interlaminar space at L2-3 and a paramedian approach the needle was then advanced under direct visualization fluoroscopy towards the interlaminar space at L2-3 seac-rr-wujadhejht technique was then carried to air towards the interlaminar space at L2-3 once the tip of the needle was in the epidural space and loss of resistance was encountered to air and after confirmation of AP as well as oblique view of the spinal cord stimulator lead was then advanced under direct visualization fluoroscopy to be at the tip of the lead at top of T8 and the bottom of the lead around mid T10 after confirmation of AP as well as lateral view to confirm correct placement of the lead in the posterior compartment of the epidural space the previous procedure was then repeated to the right paraspinal area at L2-3 interlaminar space the second lead was then inserted under direct visualization with fluoroscopy to be at the top of T8 and mid T10 area the leads were were then connected to the external neurostimulator and patient was then awakened to confirm satisfactory coverage of the painful area once satisfactory coverage was then achieved the stylette of each needle was then removed and the skin and subcutaneous tissue on to the left of the paramedian needles was then taken anesthetized with a total of 10 cc of the previous mixture of 0.25% Marcaine and 2% lidocaine using a 25-gauge regular needle the incision was then taken down through the skin and subcutaneous tissue towards the fascia making sure hemostasis was then maintained via cautery, the spinal cord stimulator leads were then passed through the above incision and secured using the anchor and sutured down with a 2-0 silk to the fascia at that level the spinal cord stimulator leads were then tunneled via a tunneler provided by the Medtronic kit towards the previously incised spinal cord stimulator battery at the left gluteal region skin and subcutaneous tissue were anesthetized with approximately 10 cc of a mix of 2% lidocaine and 0.25% Marcaine using a 25 gauge regular needle, skin and subcutaneous tissue was then taken down with the 11-gauge blade hemostasis was maintained with Bovie and dire ct pressure the incision was then taken down to the fascia and the battery was then secured with the 2-0 silk sutures that were the spinal cord stimulator leads the upper lead was then marked the new until spinal cord stimulator battery was then provided Via [employer] kit the battery was then reattached of the spinal cord stimulator make ensure that the top lead is attached to the top position from 0-7 electrodes and the bottom from 8-15 electrodes once impedance was then checked to be in the proper average number the intellus battery was then inserted into the pocket and impedance with when checked again the pocket was then inspected to confirm hemostasis in place, the intellus battery was then secured to the fascia using a 2-0 silk to the upper eyes of the battery confirming an upward writing of the intellus facing posterior, once complete confirmation the battery was then placed in the position and the the mid paramedian and the gluteal incisions were then closed primarily through a 3-0 Vicryl in a running fashion followed by a 4-0 Vicryl to the skin, hemostasis was then maintained during the procedure the skin was then covered with a Steri- Strips and bacitracin patient was then returned into the supine position in a stable condition and returned to recovery in a stable condition patient experienced no signs or symptoms of intrathecal or intravascular injection patient experienced no paresthesia the procedure was completed without any apparent difficulty any complication the patient appeared to tolerate well, motor as well as sensory function was unchanged from prior to the procedure ESTIMATED BLOOD LOSS: Minimal less than 25 mL ASSESSMENT AND PLAN: This is a 74-year-old female with lumbosacral radiculopathy lumbosacral degenerative disc disease lumbosacral spinal stenosis status post 1. Spinal cord stimulator thoracolumbar leads placement x2 #2 spinal cord stimulator Medtronic intellus generator placement #3 spinal cord stimulator generator pocket creation at the right gluteal region #4 spinal cord stimulator simple programming, 5-intraoperative fluoroscopic interpretation patient will continue her current medications a prescription was provided to the patient Keflex 500 mg 1 p.o. every 8 hours for 7 days postop instruction were given in writing to the patient and her as well as verbally and in writing, patient will follow approximately 1 week for reevaluation.
== END 2020-06-04 14:20 | disposition home or self-care (01) ==
LOC: SDC 09:27 → AC 09:27
PROVIDERS: PCP Internal Medicine; Referring Provider Anesthesiology Pain Medicine; Visit Provider Anesthesiology Pain Medicine
PROC: (CPT 63685; principal; 2020-06-04 11:15)
DX: M51.17 Intervertebral disc disorders with radiculopathy, lumbosacral region (principal); M48.07 Spinal stenosis, lumbosacral region; M47.812 Spondylosis without myelopathy or radiculopathy, cervical region; M51.37 Other intervertebral disc degeneration, lumbosacral region; M47.817 Spondylosis without myelopathy or radiculopathy, lumbosacral region; M53.3 Sacrococcygeal disorders, not elsewhere classified; M43.12 Spondylolisthesis, cervical region; M50.30 Other cervical disc degeneration, unspecified cervical region; M48.9 Spondylopathy, unspecified; M79.10 Myalgia, unspecified site; Z79.891 Long term (current) use of opiate analgesic
CPT/HCPCS: 63650; 63685; 72100; 76000; 87426; C1778; C1820; C9803; J7120

== ENCOUNTER → 2020-11-15 15:04 | Outpatient (CLI) | payer MEDICARE, OTHER, SELFPAY ==
[2020-06-04 10:03] VITALS: BMI 29.2
--- NOTE | 2020-11-15 15:09 | RAD_ITS ---
STUDY: X-RAY - UNILATERAL RIBS ( LEFT ) WITH CHEST REASON FOR EXAM: Female, 75 years old. L RIB PAIN TECHNIQUE - RIBS: 4 view(s) of the ribs. TECHNIQUE - CHEST: Single PA view of the chest. COMPARISON: None. FINDINGS - RIBS: Normal visualized ribs without a demonstrated fracture. FINDINGS - CHEST: Neurostimulator leads noted over the lower thoracic spine The lungs are clear and expanded. There is no demonstrated pleural abnormality. Normal size heart. Normal mediastinum and tutu. Normal visualized pulmonary arteries. Normal visualized aortic arch and descending thoracic aorta. Normal visualized thoracic spine. Bilateral replace glenohumeral joints free of complication There is no demonstrated abnormality of the visualized soft tissue structures of the upper abdomen. RAD/Ribs Uni Min 3V w/PA Chest IMPRESSION: RIBS: Normal x-ray examination of the ribs. CHEST: Normal x-ray examination of the chest. Electronically Signed: Kodak Chacko MD at 15:21 EDT , Service support ,
--- NOTE | 2020-11-15 15:20 | RAD_ITS ---
STUDY: X-RAY - THORACIC SPINE REASON FOR EXAM: Female, 75 years old. Acute mid back pain TECHNIQUE: 2 view(s) of the thoracic spine were obtained. COMPARISON: None. FINDINGS: Normal kyphosis of the thoracic spine. There is no substantial scoliosis. Normal thoracic vertebrae and endplates. Mild disc space narrowing throughout the thoracic spine Neural stimulator leads over the lower thoracic spine free of complication The soft tissue structures are unremarkable. RAD/Thoracic Spine 2 Views IMPRESSION: Mild degenerative changes, no acute findings Electronically Signed: Kodak Chacko MD at 8:06 EDT , Service support ,
== END ==
PROVIDERS: PCP Internal Medicine; Referring Provider Anesthesiology Pain Medicine; Visit Provider Anesthesiology Pain Medicine
DX: R07.81 Pleurodynia (principal); M54.9 Dorsalgia, unspecified
CPT/HCPCS: 71101; 72070

== ENCOUNTER 2021-10-02 10:54 | Emergency (ER) | payer MEDICARE, OTHER, SELFPAY ==
[2021-10-02 10:54] VITALS: BP 165/84; PULSE 83; RESP 18; TEMP 36.6; BMI 29.9
--- NOTE | 2021-10-02 11:18 | EX.ED.DYSGE1 ---
HPI History of Present Illness Chief Complaint: Other, Pain/Inj Informant: patient and family Narrative Narrative: 76-year-old female states that when she awoke on Thursday she had a pain on the right side of her posterior neck. Does not radiate anywhere. It is worse with movement. It feels better if she lifts her neck up. It is worse when she turns her head to the right. She denies any chest pain or shortness of breath. She has been using heat. She states it seems worse at night. PFSH PFS Medical History Arthritis Back problem Bone fracture Breast lump Bunion Cataract Child Births Goiter Hearing problem Mitral valve prolapse partial knee relacement right reverse shoulder replacement tonsilectomy UTI (urinary tract infection) Vision problems Home Medications ergocalciferol (vitamin D2) 1,250 mcg (50,000 unit) capsule (Vitamin D2) 50,000 unit PO Q7D supplement 03/22/18 [History Last Taken 04/05/18 10:00] levothyroxine 100 mcg tablet 100 mcg PO DAILY thyroid 03/22/18 [History Last Taken 06/04/20] tramadol 50 mg tablet 100 mg PO BID 10/03/19 [History Last Taken Unknown] pramipexole 1 mg tablet 2 mg PO BID 05/03/20 [History Last Taken Unknown] acetaminophen 500 mg tablet 1,000 mg PO Q8 PRN Pain 1-10 Or Fever 05/30/20 [History Last Taken Unknown] diazepam 2 mg tablet (Valium) 2 mg PO TID PRN muscle spasm #10 tabs 10/02/21 [Rx Last Taken Unknown] ibuprofen 600 mg tablet 600 mg PO Q8H PRN PRN pain #20 TABLETS 10/02/21 [Rx Last Taken Unknown] pantoprazole 40 mg granules delayed-release for susp in packet 40 mg PO DAILY 10/02/21 [History Last Taken Unknown] Allergy/AdvReac Type Severity Reaction Status Date / Time cephalexin AdvReac Upset Verified 06/04/20 09:46 Stomach Family History Other Alcohol abuse Anxiety Arthritis Bowel disease CAD (coronary artery disease) CVA (cerebral vascular accident) Cervical cancer Colon cancer Depression Hyperlipidemia Hypertension Skin cancer blood transfusion Surgical History H/O thyroidectomy Social History Smoking Status: Never smoker ROS ROS ED Constitutional Constitutional ED: Denies chills or weight loss Eyes Eyes: Denies change in vision or diplopia ENT ENT ED: Denies ear pain, rhinorrhea or sore throat Cardiovascular Cardiovascular: Denies chest pain, orthopnea, palpitations or racing heartbeat Respiratory/Chest Respiratory/Chest: Denies cough, dyspnea or orthopnea Gastrointestinal Gastrointestinal: Denies abdominal pain, diarrhea, nausea or vomiting Genitourinary Genitourinary ED: Denies dysuria, hematuria or urinary frequency Musculoskeletal Musculoskeletal: Reports neck pain; Denies arthralgias or myalgias Integumentary Denies abscess or rash Neurologic Neurologic: Denies headache(s) or weakness Psychiatric Psychiatric: Denies anxiety, depression, suicidal ideation or suicidal thoughts Endocrine Endocrinology: Denies polydipsia, polyphagia or polyuria Allergic/Immunologic Allergic/Immunologic ED: Denies mouth swelling, tongue swelling or urticaria EXAM Physical Exam Const Vital Signs: 10/02/21 10:54 Temperature 97.9 F Temperature Source Temporal Pulse Rate 83 Respiratory Rate 18 Blood Pressure 165/84 H Blood Pressure Mean 111 Positive well nourished and well developed General Appearance ED: well developed HEENT Reports normocephalic, head/scalp atraumatic and moist mucous membranes Eyes PERRL and EOMs intact bilaterally Neck no lymphadenopathy and no JVD Neck Narrative: Patient has tenderness to palpation on the right occipital ridge and suboccipital triangle musculature on the right. She notes increased pain with flexion and rotation to the right. Neurovascularly intact. No rashes. Resp normal respiratory effort and clear to auscultation bilaterally Cardio regular rate, regular rhythm and no murmurs GI normal to inspection, nondistended, normoactive bowel sounds and non-tender Palpation: soft Back/Spine no CVA tenderness and normal ROM Extremity normal to inspection General Extremety ED: Negative for edema General Extremity: Negative for edema Neuro oriented x3 and CN's II-XII intact bilaterally Sensorium / Orientation: alert Motor Exam: strength 5/5 throughout Psych mental status grossly normal Mood & Affect: Negative for depressed or tearful Skin no rashes or lesions noted and no wounds MDM MDM MDM Narrative Medical decision making narrative: Clinically this would appear to be a muscle spasm much like torticollis would be. Would recommend her getting a soft collar for comfort. Continued use of heat anti-inflammatories. We can try some low-dose Valium but she was advised that this can be sedating especially in her population. Follow-up primary care if not improving Discharge Plan Triage Chief Complaint: Other, Pain/Inj ED Provider: Reese Trujillo Dx/Rx/DC Orders Clinical Impression: Neck muscle spasm Instructions: ED Neck Spasm, No Trauma Prescriptions: New diazepam [Valium] 2 mg tablet 2 mg PO TID PRN (Reason: muscle spasm) Qty: 10 0RF ibuprofen 600 mg tablet 600 mg PO Q8H PRN PRN (Reason: pain) Qty: 20 0RF No Action pramipexole 1 mg tablet 2 mg PO BID levothyroxine 100 MCG tablet 100 mcg PO DAILY ergocalciferol (vitamin D2) [Vitamin D2] 50,000 UNIT capsule 50,000 unit PO Q7D tramadol 50 MG tablet 100 mg PO BID acetaminophen 500 MG tablet 1,000 mg PO Q8 PRN (Reason: Pain 1-10 Or Fever) pantoprazole [address] For Susp In Packet 40 mg PO DAILY Primary Care Provider: Maggi Barrow Referrals: Maggi Barrow MD [Primary Care Provider] - 1 Week if not improving Disposition Disposition: Home, Self Care
== END 2021-10-02 11:30 | disposition home or self-care (01) ==
PROVIDERS: Emergency Provider Emergency Medicine; PCP Internal Medicine; Visit Provider Emergency Medicine
DX: M62.838 Other muscle spasm (principal)
CPT/HCPCS: 99282

== ENCOUNTER → 2022-02-18 | Outpatient (CLI) | payer MEDICARE, OTHER, SELFPAY ==
[2022-02-18 11:56] LABS: Erythrocyte Sedimentation Rate 15 mm/hr (0-30)
[2022-02-18 12:11] LABS: CRP 3.68 mg/L (0.0-3.0); LDH 213 U/L (84-246)
[2022-02-18 15:49] LABS: Amylase 30 U/L (25-115); Lipase 142 U/L (73-393)
[2022-02-19 14:09] LABS: Anti-Centromere B Ab <0.2 AI (0.0-0.9); Anti-Chromatin <0.2 AI (0.0-0.9); Anti-Jo <0.2 AI (0.0-0.9); Anti-Scleroderma-70 AB <0.2 AI (0.0-0.9); Endomysial Antibody IgA Negative (Negative); RNP Ab 0.3 AI (0.0-0.9); SJOGREN'S Anti-SS-A test 0.2 AI (0.0-0.9); SJOGREN'S Anti-SS-B test < 0.2 AI (0.0-0.9); Smith Ab <0.2 AI (0.0-0.9)
[2022-02-19 16:21] LABS: Immunoglobulin A 130 mg/dL (64-422); t-Transglutaminase IgA <2 U/mL (0-3)
[2022-02-19 16:22] LABS: Anti-dsDNA Ab 21 IU/mL (0-9)
[2022-02-20 16:14] LABS: Gastrin, Serum 50 pg/mL (0-115)
[2022-02-23 10:57] LABS: H. PYLORI STOOL AG Negative (Negative); Pancreatic Elastase, Fecal > 500 (>200)
[2022-02-26 02:07] LABS: Alternaria alternata <0.10 kU/L (Class 0); Aspergillus fumigatus <0.10 kU/L (Class 0); Bahia Grass 2.29 kU/L (Class III); Beef <0.10 kU/L (Class 0); Bermuda Grass 0.42 kU/L (Class I); Bluegrass, Kentucky 5.18 kU/L (Class IV); Cat Hair/Dander, Standard <0.10 kU/L (Class 0); Cedar, Mountain <0.10 kU/L (Class 0); Cladosporium herbarum <0.10 kU/L (Class 0); Cockroach, American <0.10 kU/L (Class 0); Corn <0.10 kU/L (Class 0); D farinae Mite <0.10 kU/L (Class 0); D pteronyssinus <0.10 kU/L (Class 0); Dog Epithelia 0.14 kU/L (Class 0/I); Egg, Whole <0.10 kU/L (Class 0); Elm, American White <0.10 kU/L (Class 0); Hazelnut Tree <0.10 kU/L (Class 0); Hickory, White <0.10 kU/L (Class 0); Johnson Grass 0.67 kU/L (Class II); Maple/Box Elder <0.10 kU/L (Class 0); Milk (Cow) <0.10 kU/L (Class 0); Mucor racemosus <0.10 kU/L (Class 0); Mugwort <0.10 kU/L (Class 0); Mulberry, White <0.10 kU/L (Class 0); Oak, White <0.10 kU/L (Class 0); Peanut <0.10 kU/L (Class 0); Penicillium chrysogen <0.10 kU/L (Class 0); Pigweed, Rough <0.10 kU/L (Class 0); Plantain, English 0.13 kU/L (Class 0/I); Pork <0.10 kU/L (Class 0); Ragweed, Short/Common <0.10 kU/L (Class 0); Sheep Sorrel(Dock) <0.10 kU/L (Class 0); Soybean <0.10 kU/L (Class 0); Stemphylium herbarum <0.10 kU/L (Class 0); Sweet Gum <0.10 kU/L (Class 0); Sycamore, American <0.10 kU/L (Class 0); Wheat <0.10 kU/L (Class 0)
[2022-02-26 19:14] LABS: Chocolate <0.10 kU/L (Class 0)
[2022-02-26 22:07] LABS: Albumin 3.9 g/dL (2.9-4.4); Alpha-1-Globulins 0.3 g/dL (0.0-0.4); Alpha-2-Globulins 0.9 g/dL (0.4-1.0); Cytoplasmic Ab (C-ANCA) <1:20 titer (Neg:<1:20); Gamma Globulin 0.8 g/dL (0.4-1.8); Immunoglobulin A 131 mg/dL (64-422); Immunoglobulin G 821 mg/dL (586-1602); Immunoglobulin M 52 mg/dL (26-217); PROEL- TOTAL PROTEIN 6.9 g/dL (6.0-8.5)
[2022-02-28 14:23] LABS: Calprotectin, Stool 47 ug/g (0-120); Fats, Neutral Normal (.); Fats, Total Normal (.)
[2022-02-28 14:34] LABS: Immunoglobulin E 15 IU/mL (6-495); Perinuclear Ab (P-ANCA) <1:20 titer (Neg:<1:20)
== END | disposition home or self-care (01) ==
LOC: LAB 10:49
PROVIDERS: PCP Internal Medicine; Referring Provider Internal Medicine Gastroenterology; Visit Provider Internal Medicine Gastroenterology
DX: R19.7 Diarrhea, unspecified (principal); K58.9 Irritable bowel syndrome, unspecified; R15.1 Fecal smearing; R19.4 Change in bowel habit
CPT/HCPCS: 36415; 82150; 82274; 82653; 82705; 82784; 82785; 82941; 83516; 83615; 83630; 83690; 83993; 84165; 85652; 86003; 86005; 86140; 86225; 86235; 86255; 86256; 86334; 87177; 87209; 87329; 87338; 87493; 87506

== ENCOUNTER 2022-05-30 16:18 | Emergency (ER) | payer MEDICARE, OTHER, SELFPAY ==
[2022-05-30 16:19] VITALS: BP 153/69; PULSE 75; RESP 15; TEMP 36.7; O2SAT 99; BMI 27.8
[2022-05-30 16:44] VITALS: O2SAT 97; BMI 27.8
--- NOTE | 2022-05-30 16:44 | EKG12_ITS ---
Test Reason : VISION CHANGES Blood Pressure : / mmHG Vent. Rate : 075 BPM Atrial Rate : 075 BPM P-R Int : 136 ms QRS Dur : 080 ms QT Int : 398 ms P-R-T Axes : 037 033 049 degrees QTc Int : 444 ms Normal sinus rhythm Normal ECG Confirmed by ALBERTA GILL, DANA ([id number]), scientific editor SIERRA FU ([id number]) on 06/02/2022 12:42:52 PM Referred By: Confirmed By:DANA PINZON MD
--- NOTE | 2022-05-30 16:45 | CT_ITS ---
We are attempting to reach an attending provider to discuss findings. An addendum with communication details will be sent when the communication is complete. STUDY: CTA HEAD AND NECK WITH CONTRAST REASON FOR EXAM: Female, 76 years old. Blurred vision. Patient denies dizziness. Neuro deficit. Acute stroke suspected. RADIATION DOSAGE (If Supplied By Facility): CTDIvol = ( 19.15 ) mGy, DLP = ( 665.41 ) mGycm TECHNIQUE: CT angiography was performed with a multi-detector CT scanner. Data acquisition was obtained from the skull base through the vertex following intravenous administration of IV 100mL [id number]-[id number]. MIP images were reconstructed from the axial data set. Post-processing of the angiographic images was performed, with multiplanar reformation and 3D reconstruction. Individualized dose optimization techniques were used for this CT. COMPARISON: No relevant priors. FINDINGS: Normal bilateral petrous carotid arteries. Normal right cavernous carotid artery with a normal supraclinoid bifurcation. Normal left cavernous carotid artery with a normal supraclinoid bifurcation. Normal right A1 segments of the anterior cerebral artery. Normal left A1 segments of the anterior cerebral artery. Normal intact anterior communicating artery (ACOM). Normal bilateral A2 segments of the anterior cerebral arteries. Normal right M1 and M2 segments of the middle cerebral arteries, with a normal M1 bifurcation. Normal left M1 and M2 segments of the middle cerebral arteries, with a normal M1 bifurcation. Normal right posterior communicating artery (PCOM). There is non-visualization of the left posterior communicating artery (PCOM). Normal bilateral vertebral arteries. Normal basilar artery with a normal basilar bifurcation. The visualized bilateral superior cerebellar (SCA) arteries are normal. Normal P1, P2 and visualized P3 segments of the left posterior cerebral artery. Absent P1 segment of the right posterior cerebral artery. The P2 and visualized P3 segments are supplied via the patent posterior communicating artery. There is no demonstrated aneurysm of the [place]. There is no demonstrated abnormality of the visualized brain. AORTIC ARCH: Normal visualized aortic arch. Normal origins of the brachiocephalic, left common carotid, and left subclavian arteries. RIGHT CAROTID ARTERIES: Normal right common carotid artery (CCA). Normal right common carotid bulb. Normal origin of the right internal carotid (ICA) artery without a hemodynamically significant stenosis. Normal visualized cervical portion of the right internal carotid artery. Normal origin of the right external carotid artery (ECA). LEFT CAROTID ARTERIES: Normal left common carotid artery (CCA). Normal left common carotid bulb. Normal origin of the left internal carotid (ICA) artery without a hemodynamically significant stenosis. Normal visualized cervical portion of the left internal carotid artery. Normal origin of the left external carotid artery (ECA). VERTEBRAL ARTERIES: There is enhancement within the bilateral vertebral arteries with a small left vertebral artery, and a dominant right vertebral artery. IMPRESSION: 1. Normal carotid and vertebral arteries. 2. Absent P1 segment of the right posterior cerebral artery. The distal vessels supplied via the posterior communicating artery. Otherwise normal [place]. There is no evidence of large vein occlusion. Electronically Signed: Joey Chaney DO at 18:04 EST Reading Location ID and State: [id number] Tel [phone], Service support , STUDY: CT BRAIN WITHOUT CONTRAST REASON FOR EXAM: Female, 76 years old. Blurred vision. Double vision. Acute neurologic deficit. RADIATION DOSAGE (If Supplied By Facility): CTDIvol = ( 44.99 ) mGy, DLP = ( 745.49 ) mGycm TECHNIQUE: Transaxial CT imaging of the brain was performed without administration of intravenous contrast material. Individualized dose optimization techniques were used for this CT. COMPARISON: No relevant priors. FINDINGS: Normal soft tissue structures. Normal calvarium. Normal size ventricles and extra-axial spaces for the patient''s age. Normal white matter tracts of the cerebral hemispheres. Normal basal ganglia and thalami. Normal brainstem. Normal cerebellum. There is no intracranial hemorrhage. There are no findings of an acute ischemic infarction. Normal visualized paranasal sinuses. CT/STROKE CTA Head AND Neck W/Con IMPRESSION: Normal unenhanced CT scan of the brain. Electronically Signed: Joey Chaney DO at 18:05 EST ,
[2022-05-30 16:46] VITALS: BP 131/69; PULSE 70; RESP 18; TEMP 37.1; O2SAT 95
--- NOTE | 2022-05-30 16:51 | EX.ED.VIS.EY ---
HPI History of Present Illness Chief Complaint: Vision Prob Informant: patient Associated Symptoms Visual Changes: bilateral: Blurred vision and Diplopia (When head is turned to the right) Narrative Narrative: Patient is a 76-year-old female with history of low back pain and postoperative hypothyroid as well as longstanding insomnia presenting with vision changes for the past 2 days. Yesterday she had intermittent blurry vision when looking with both eyes. When she looks with 1 eye or the other it is not blurry. Its been more constant of the majority of the day today. Today she also noticed that when she turns her head to the right and looks at things further away she has what she describes as vertical double vision. She does not have this diplopia when she looks at things either head on or when she turns her head to the left. She saw Dr. Beckman, ophthalmology 2 days ago because she also had an episode of sharp right eye pain. She was evaluated but states her eyes were not dilated. She was told she likely has dry eyes. She followed up with Dr. Gonzales as well because she looked online and found that eye pain can be associate with TMJ. She was diagnosed with TMJ and told to take Motrin. Patient states she has been having intermittent sinus pressure and headache. States her eyes feel swollen. She does wear corrective lenses at baseline. She denies any associated numbness, visual field cut, weakness or speech changes. She also reports that she has been dealing with worsening insomnia over the past few months and only sleeps for 3 to 4 hours at a time. 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 She is not sure if any of this is related. She denies any difficulty swallowing. She denies any fever or significant night sweats. She has had a 15 pound weight loss but this has been intentional and she has been on a diet. No other complaints at this time. [facility] Medical History Arthritis Back problem Bone fracture Breast lump Bunion Cataract Child Births Chronic insomnia Fatigue Fecal incontinence GERD (gastroesophageal reflux disease) Goiter Hearing problem Mitral valve prolapse Osteoarthritis partial knee relacement Rectocele, female right reverse shoulder replacement RLS (restless legs syndrome) tonsilectomy UTI (urinary tract infection) Vision problems Home Medications ergocalciferol (vitamin D2) 1,250 mcg (50,000 unit) capsule (Vitamin D2) 50,000 unit PO Q7D supplement 03/22/18 [History Last Taken 04/05/18 10:00] levothyroxine 100 mcg tablet 100 mcg PO DAILY thyroid 03/22/18 [History Last Taken 06/04/20] tramadol 50 mg tablet 100 mg PO BID 10/03/19 [History Last Taken Unknown] pramipexole 1 mg tablet 2 mg PO BID 05/03/20 [History Last Taken Unknown] acetaminophen 500 mg tablet 1,000 mg PO Q8 PRN Pain 1-10 Or Fever 05/30/20 [History Last Taken Unknown] diazepam 2 mg tablet (Valium) 2 mg PO TID PRN muscle spasm #10 tabs 10/02/21 [Rx Last Taken Unknown] ibuprofen 600 mg tablet 600 mg PO Q8H PRN PRN pain #20 TABLETS 10/02/21 [Rx Last Taken Unknown] pantoprazole 40 mg granules delayed-release for susp in packet 40 mg PO DAILY 10/02/21 [History Last Taken Unknown] fluticasone propionate 50 mcg/actuation nasal spray,suspension (Flonase Allergy Relief) 1 spray intranasal DAILY #16 grams 05/30/22 [Rx Last Taken Unknown] meclizine 12.5 mg tablet 12.5 mg PO TID PRN dizziness #20 tabs 05/30/22 [Rx Last Taken Unknown] Allergy/AdvReac Type Severity Reaction Status Date / Time cephalexin AdvReac Upset Verified 05/30/22 16:22 Stomach Family History Father Colon cancer Hyperlipidemia CAD (coronary artery disease) Mother Hyperlipidemia Other Alcohol abuse Anxiety Arthritis Bowel disease CVA (cerebral vascular accident) Cervical cancer Depression Hypertension Skin cancer blood transfusion Surgical History H/O thyroidectomy H/O: hysterectomy History of left shoulder replacement History of right shoulder replacement Hx of tonsillectomy S/P left knee arthroscopy Social History Smoking Status: Never smoker alcohol intake: never ROS ROS ED Constitutional Constitutional ED: Denies chills or fever(s) Eyes Eyes: Reports blurry vision and diplopia; Denies change in vision ENT ENT ED: Denies rhinorrhea or sore throat Cardiovascular Cardiovascular: Denies chest pain Respiratory/Chest Respiratory/Chest: Denies cough or dyspnea Gastrointestinal Gastrointestinal: Denies abdominal pain, nausea or vomiting Musculoskeletal Musculoskeletal: Denies arthralgias or myalgias Integumentary Denies rash Neurologic Neurologic: Reports headache(s); Denies paresthesias or weakness Psychiatric Psychiatric: Denies anxiety or depression Hematologic/Lymphatic Hematologic/Lymphatic: Denies easy bleeding or easy bruising EXAM Physical Exam Const Vital Signs: 05/30/22 16:19 Temperature 98.0 F Temperature Source Temporal Pulse Rate 75 Respiratory Rate 15 Blood Pressure 153/69 H Blood Pressure Mean 97 Pulse Ox 99 Oxygen Delivery Method Room Air Positive well nourished and well developed General Appearance ED: well developed and NAD HEENT Reports TM's clear HEENT Narrative: Sinuses. No tenderness over the bilateral temporal area. No obvious swelling appreciated. atraumatic Nose: external nose normal Tympanic Membrane ED: Yes TM's clear Eyes Eyes Narrative: Pupils equal round reactive to light. PERRL. No nystagmus appreciated. No visual field cut. Normal conjunctiva. No tearing. Normal accommodation. Neck supple and no JVD Neck Narrative: No meningeal signs Resp normal respiratory effort Cardio regular rate, regular rhythm and no murmurs GI non-tender and non-distended Neuro oriented x3, CN's II-XII intact bilaterally and moves all extremities Neuro Narrative: NIH equals 0 Sensorium / Orientation: alert Sensory Exam: No sensory level loss detected Motor Exam: Negative for general weakness Psych Mood & Affect: Negative for depressed or anxious Skin no wounds Lesions: no lesions Rashes: no rashes MDM MDM MDM Narrative Medical decision making narrative: Patient is evaluated for 2 days of blurry vision and a couple hours of double vision when she turns her head to the right. Specifically its not with rightward gaze. Differential includes cerebral artery dissection, LVO, peripheral vertigo, electrode abnormality. CT of the brain as well as CT of the head and neck is obtained to look for any acute intracranial process or defects with the blood flow. This is negative for any acute process. Patient is found to have an absent P1 segment of right posterior cerebral artery however the distal vessels are supplied via the posterior communicating artery and otherwise she has a normal [place]. This is discussed directly with radiology, Dr. Chaney. Patient does not have any significant electrolyte abnormalities. Her EKG is normal. Case discussed with ophthalmology on-call, Dr. Linares. Given that the symptoms are not associated with direction of vision but movement of the head he finds it much less likely to have involvement of a cranial nerve or TIA. In addition he is reassured that patient has a normal neurologic exam with no other symptoms. I have to agree with this. He recommends outpatient follow-up in the clinic on Thursday or Thursday. This is discussed with the patient and her son. Patient has a large stressor at home taking care of her disabled and they think this with her lack of sleep if she is up all night getting him things is likely contributing to some of her symptoms. Is possible this could be peripheral vertigo especially given the amount of nasal congestion she has been having. I do not think this is a central vertigo. Patient does not have any horizontal nystagmus or truncal ataxia. I do not think she requires admission for an MRI. I will be started on a low-dose of meclizine as well as Flonase. Is encouraged to follow-up with ENT as well as ophthalmology. Encouraged follow-up with primary care doctor and to seek mental health social worker help such as home health aide to help at home as needed with her . Patient verbalized agreement understand this plan. Patient discharged home in stable condition. Leaves ER with a normal gait. Lab Data Attestation: I reviewed the patient's lab results. Rhythm Strip Rhythm Strip: Sinus Rhythm Rate: 75 Ectopy: None EKG Initial EKG: Attestation: I personally reviewed and interpreted this EKG as follows: Interpretation: Sinus Rhythm Comments: Normal sinus rhythm at a rate of 75 bpm Normal axis Normal intervals Normal ST segments Prior EKG tracings: available for review Prior: Unchanged Discharge Plan Triage Chief Complaint: Vision Prob ED Provider: Mona Henson Dx/Rx/DC Orders Clinical Impression: Transient diplopia, Blurred vision, bilateral Instructions: ED Blurred Vision, ED Double Vision (Diplopia) Prescriptions: New meclizine 12.5 mg tablet 12.5 mg PO TID PRN (Reason: dizziness) Qty: 20 0RF fluticasone propionate [Flonase Allergy Relief] 50 mcg/actuation spray,suspension 1 spray intranasal DAILY Qty: 16 0RF Rx Instructions: administer into each nostril No Action pramipexole 1 mg tablet 2 mg PO BID levothyroxine 100 MCG tablet 100 mcg PO DAILY ergocalciferol (vitamin D2) [Vitamin D2] 50,000 UNIT capsule 50,000 unit PO Q7D tramadol 50 MG tablet 100 mg PO BID acetaminophen 500 MG tablet 1,000 mg PO Q8 PRN (Reason: Pain 1-10 Or Fever) pantoprazole [address] For Susp In Packet 40 mg PO DAILY diazepam [Valium] 2 mg tablet 2 mg PO TID PRN (Reason: muscle spasm) Qty: 10 0RF ibuprofen 600 mg tablet 600 mg PO Q8H PRN PRN (Reason: pain) Qty: 20 0RF Primary Care Provider: Maggi Barrow Referrals: Magdi Crenshaw MD [Med Staff - Courtesy Staff] - 3-5 Days if not improving Maggi Barrow MD [Primary Care Provider] - Joaquin Linares MD [Med Staff - Active Staff] - 06/02/22 Activity Restrictions/Additional Instructions: The exact cause of your symptoms is not clear. After discussion with ophthalmology, Dr. Linares, we recommend that you follow-up at the eye doctor on Thursday or Thursday. Call Thursday to schedule appointment and let them know you are seen in the ER and told that you need to follow-up. It is possible you could have a component of vertigo and that you been prescribed meclizine for this. You have been prescribed Flonase to help with your sinus congestion. If you have a progression of your symptoms or develop any new vision changes, numbness, weakness, severe headache or any other neurologic symptoms please return immediately to the emergency room. Disposition Disposition: Home, Self Care Discharge Date/Time: 05/30/22 20:06
[2022-05-30 17:02] LABS: Absolute Lymphocyte Count 2.15 X10^3/uL (0.83-4.51); Absolute Neutrophil Count 3.2 X10^3/uL (2.0-7.7); Basophil# 0.03 X10^3/uL; Basophil% 0.5 % (0-1); Eosinophil# 0.22 X10^3/uL; Eosinophils% 3.6 % (0-5); Hematocrit 44.5 % (37-47); Hemoglobin 14.2 g/dL (12.0-15.0); Lymphocyte # 2.15 X10^3/ul (0.83-4.51); Lymphocyte % 35.1 % (19-41); Mean Corp Hgb Conc 31.9 g/dL (32-36); Mean Corpuscular Hgb 27.4 pg (27.0-32.0); Mean Corpuscular Volume 85.9 fL (81-99); Mean Platelet Vol. 11.3 fl (6.2-12.0); Monocyte# 0.46 X10^3/uL; Monocyte% 7.5 % (0-10); NRBC Flagged by Analyzer 0 % (0-5); Neutrophil # 3.24 X10^3/uL (2.7-7.7); Platelet Count 269 K/mm3 (150-450); RBC Distribution Width CV 13.9 % (11.6-14.6); RBC Distribution Width SD 43.4 fl (35.1-43.9); Red Blood Count 5.18 M/mm3 (4.2-5.4); White Blood Count 6.1 K/mm3 (4.4-11.0)
[2022-05-30 17:12] LABS: Prothrombin Time (Protime)PT. 13.1 SECONDS (11.7-14.9)
[2022-05-30 17:13] LABS: Partial Thromboplast Time 30.2 Seconds (24.1-36.2)
[2022-05-30 17:22] LABS: Erythrocyte Sedimentation Rate 14 mm/hr (0-30)
[2022-05-30 17:27] LABS: Anion Gap 6 (5-15); BUN 25 mg/dL (7-18); BUN/Creat Ratio 23.1 RATIO (10-20); CRP < 2.90 mg/L (0.0-3.0); Calcium,Total 9.1 mg/dL (8.5-10.1); Chloride 108 mmol/L (98-107); Creatinine, Serum 1.08 mg/dL (0.55-1.02); EST Glomerular Filtration Rate 52 mL/min (>60); Est Glom Filt Rate - Afr Amer 64 mL/min (>60); Glucose 112 mg/dL (74-106); Potassium 3.9 mmol/L (3.5-5.1); Sodium Level 144 mmol/L (136-145)
--- NOTE | 2022-05-30 17:40 | RAD_ITS ---
STUDY: X-RAY CHEST REASON FOR EXAM: Female, 76 years old. Acute stroke suspected. TECHNIQUE: Single AP portable view of the chest. COMPARISON: Chest and left RIBS, October 26, 2020. FINDINGS: The lungs are clear and expanded. There is no demonstrated pleural abnormality. Normal size heart. Normal mediastinum and tutu. Normal visualized pulmonary arteries. Normal visualized aortic arch and descending thoracic aorta. Stable dorsal column stimulator. Stable bilateral shoulder replacements. There is no demonstrated abnormality of the visualized soft tissue structures of the upper abdomen. RAD/Chest 1 View IMPRESSION: No acute cardiopulmonary disease or interval change. Electronically Signed: Joey Chaney DO at 17:57 EST ,
[2022-05-30 18:19] VITALS: BP 115/70; PULSE 81; RESP 17; O2SAT 93
[2022-05-30 19:59] VITALS: BP 127/109; PULSE 88; RESP 21; O2SAT 97
== END 2022-05-30 20:06 | disposition home or self-care (01) ==
PROVIDERS: Emergency Provider Emergency Medicine; PCP Internal Medicine; Visit Provider Emergency Medicine
DX: H53.8 Other visual disturbances (principal); G47.00 Insomnia, unspecified; Z97.3 Presence of spectacles and contact lenses; H53.2 Diplopia; H57.11 Ocular pain, right eye; K21.9 Gastro-esophageal reflux disease without esophagitis; R51.9 Headache, unspecified
CPT/HCPCS: 70496; 70498; 71045; 80048; 85025; 85610; 85652; 85730; 86140; 93005; 99285; Q9967

== ENCOUNTER → 2022-06-02 | Outpatient (CLI) | payer MEDICARE, OTHER, SELFPAY ==
[2022-06-06 17:18] LABS: ACHR Recep AB, Blocking 12 % (0-25)
== END | disposition home or self-care (01) ==
LOC: MTLAB 11:15
PROVIDERS: PCP Internal Medicine; Visit Provider Ophthalmology
DX: H53.2 Diplopia (principal)
CPT/HCPCS: 36415; 83519